=== PATIENT | female | born 1955 | race Caucasian/White ===

== ENCOUNTER 2016-09-25 12:13 | Inpatient (IN) | payer OTHER ==
[~2016-09-25] VITALS: Ht 165.1 cm; Wt 113.3 kg
[2016-09-25] MEDS ORDERED: SODIUM CHLORIDE 0.9% 1000ML 1,000 ML IV STA ×2 (12:37→16:04)
[2016-09-25] MEDS ORDERED: FLUT0.15 NAE (13:07)
[2016-09-25] MEDS ORDERED: LORA-749 PO (13:07)
--- NOTE | 2016-09-25 13:28 | DIAGNOSTIC IMAGING REPORT ---
CHEST ONE VIEW PORTABLE CLINICAL HISTORY: Dyspneic, tachycardia COMPARISON STUDY: No previous studies for comparison. FINDINGS: Moderate S-shaped scoliosis of the thoracolumbar spine is partially imaged. There is no pneumothorax or pleural effusion. There is no evidence of pulmonary edema. Cardiac size is normal. IMPRESSION: 1. No acute cardiopulmonary findings. 2. Moderate thoracolumbar spine S-shaped scoliosis. Electronically signed by: Scott Corbin M.D. 09/25/2016 1:26 PM Dictated Date/Time: 09/25/2016 1:25 PM
[2016-09-25 13:30] LABS: BASO % 0.1 %; BASO ABS # 0.02 K/uL (0-0.2); COMPLETE YES; EOS % 0.3 %; IG% 0.2 %; LYMPH ABS # 0.97 K/uL (1.2-3.4); MEAN CELL VOLUME 87.2 fL (80-100); MEAN CORPUSCULAR HEMOGLOBIN 28.7 pg (25-34); MEAN CORPUSCULAR HGB CONC 32.9 g/dl (32-36); MEAN PLATELET VOLUME 9.2 fL (7.4-10.4); NEUT % 88.4 %; PLATELET COUNT 298 K/uL (130-400); WHITE BLOOD COUNT 13.82 K/uL (4.8-10.8)
--- NOTE | 2016-09-25 13:34 | EMERGENCY ROOM VISIT NOTE ---
History First contact with patient: 12:23 Chief Complaint: ILLNESS Stated Complaint: HIGH PULSE, FEVER, TIRED History of Present Illness The patient is a 61 year old female who presents to the Emergency Room via private vehicle referred from physician office with complaints of "high pulse, fever, tired". The patient states that August 30, she began with generalized fatigue, so her family doctor who gave her nasal spray, and Claritin-D recommendations. She then went home and felt a little bit better but then developed a cough. She states she went back and was given a course of prednisone taper. She states that she began to feel a little bit better, but off-and-on has had flareups of the cough and fatigue. She states it has progressively worsened to the point where she now feels extremely tired, and is dyspneic with exertion. She states that last night around 2 PM she developed chills, shivering. She states that her "bones ache". She was seen by a practitioner in Dr. Vishnu Hanks's office today, who referred her here for further evaluation and management as she was found to be very tachycardic. There is associated fevers, chills, posttussive emesis 1, and fatigue. She denies any chest pain, nausea, abdominal pain, close contacts with similar symptoms, urinary symptoms. She does have a minimal appetite. There is no history of thyroid problems. Her bowel movements and urination has been normal. She is not compromised and did receive her flu shot this year. Review of Systems A complete 10-point Review of Systems was discussed with the patient, with pertinent positives and negatives listed in the History of Present Illness. All remaining Review of Systems questions can be considered negative unless otherwise specified. Past Medical/Surgical History Medical Problems: (1) SIRS (systemic inflammatory response syndrome) Cholecystectomy Family History Heart disease, hypertension, cancer, gallbladder disease Social History Smoking Status: Never Smoker Social History: Patient lives at home with . She denies alcohol and tobacco use. Current/Historical Medications Scheduled PRN Fluticasone Propionate (Nasal) (Flonase Allergy Relief), 2 SPRAY ALBINO DAILY PRN for Nasal Congestion Loratadine & Pseudoephedrine (Claritin-D 24 Hour), 1 TAB PO DAILY PRN for ALLERGY/CONGESTION Allergies Coded Allergies: No Known Allergies (Unverified , 09/25/16) Physical Exam Vital Signs Date Time Temp Pulse Resp B/P (MAP) Pulse Ox O2 Delivery O2 Flow Rate FiO2 09/25/16 18:32 154/91 09/25/16 18:30 103 96 09/25/16 18:02 106/76 09/25/16 18:00 101 98 09/25/16 17:50 106 18 130/71 94 09/25/16 17:49 37.1 09/25/16 15:16 130/86 09/25/16 14:43 117 25 95 09/25/16 14:33 116 22 96 09/25/16 14:32 127/73 09/25/16 14:28 112 27 94 09/25/16 14:23 112 20 95 09/25/16 14:18 111 25 95 09/25/16 14:13 110 24 94 09/25/16 14:08 106 28 95 09/25/16 14:07 138/85 09/25/16 13:48 109 27 94 09/25/16 13:43 111 23 95 09/25/16 13:38 113 19 95 09/25/16 13:33 113 31 95 09/25/16 13:32 135/89 09/25/16 13:28 112 26 94 09/25/16 13:23 112 24 93 09/25/16 13:18 117 27 147/88 94 09/25/16 13:13 122 22 09/25/16 13:08 124 22 95 09/25/16 13:03 127 28 94 09/25/16 12:58 125 28 93 09/25/16 12:55 95 Room Air 09/25/16 12:53 129 18 93 09/25/16 12:48 128 23 94 09/25/16 12:45 126 09/25/16 12:43 111 25 93 09/25/16 12:21 37.7 144 18 155/92 95 Room Air Physical Exam VITAL SIGNS - Vital signs and nursing notes were reviewed. Patient is febrile at 37.7, hypertensive at 152/92, tachycardic at a rate of 144 beats per minutes and saturating on room air 95%. GENERAL -61-year-old female appearing her stated age who is in no acute distress. Communicates well with provider and answers questions appropriately. SKIN - Without rashes. the integument is unremarkable. HEAD - NC/AT. EYES - PERRL with EOMI bilaterally. Sclera anicteric. Palpebral conjunctiva pink and moist with no injection noted. EARS - No deformities of external structures noted on gross examination bilaterally. No pain elicited with palpation of the tragus bilaterally. External auditory canals without discharge or otorrhea. Tympanic membranes pearly lopez without retraction or bulging. No fluid or purulent material visualized behind the TM. Handle of malleus, umbo, cone of light, pars tensa/ flaccid all easily visualized. NOSE - Midline and without cyanosis. No epistaxis or purulent drainage noted. Septum midline without deviation or septal hematoma noted. MOUTH/OROPHARYNX - Without perioral cyanosis. Buccal mucosa pink and moist and without leukoplakia. Tongue midline with equal elevation of palate bilaterally. No tonsillar hypertrophy, erythema, or exudates noted. Fair dentition noted. NECK - Neck with FROM. Supple to palpation. No lymphadenopathy noted. No nuchal rigidity. No meningismus. LUNGS - Chest wall symmetric without accessory muscle use, intercostals retractions, or central cyanosis. Normal vesicular breath sounds CTA B/L. No wheezes, rales, or rhonchi appreciated. CARDIAC - RRR with S1/S2. No murmur, rubs, or gallops appreciated. ABDOMEN - Abdominal contour without pulsations or visible masses. BS normoactive all four quadrants. No tenderness, palpable masses, hepatosplenomegaly, or ascites noted. EXTREMITIES - No clubbing or peripheral cyanosis. No pretibial edema present. No calf edema. +5/5 strength noted in UE/LE bilaterally. NEUROLOGIC - Cranial nerves II through XII grossly intact. Sensory intact to light touch throughout. PSYCH - Pt is very pleasant and interacts well with examiner. Medical Decision & Procedures ER Provider Diagnostic Interpretation: CHEST ONE VIEW PORTABLE CLINICAL HISTORY: Dyspneic, tachycardia COMPARISON STUDY: No previous studies for comparison. FINDINGS: Moderate S-shaped scoliosis of the thoracolumbar spine is partially imaged. There is no pneumothorax or pleural effusion. There is no evidence of pulmonary edema. Cardiac size is normal. IMPRESSION: 1. No acute cardiopulmonary findings. 2. Moderate thoracolumbar spine S-shaped scoliosis. Electronically signed by: Scott Corbin M.D. 09/25/2016 1:26 PM Dictated Date/Time: 09/25/2016 1:[address] ANGIOGRAM OF THE CHEST CLINICAL HISTORY: Tachycardia, elevated d-dimer, fever, fatigue. COMPARISON STUDY: Chest x-ray dated 10-10 TECHNIQUE: Following the IV administration of 102 mL of Optiray-320, CT angiogram of the thorax was performed from the thoracic inlet to the lung bases utilizing the pulmonary embolus protocol. Images are reviewed in the axial, sagittal, and coronal planes. IV contrast was administered without complication. MIP imaging was performed. CT DOSE: 488.89 mGy.cm FINDINGS: There is a 44 mm left lobe hepatic cyst. There is no pathologic mediastinal adenopathy. There is a borderline enlarged 9 mm left hilar lymph node. There was no evidence of thoracic aortic dilatation. There were no pulmonary artery filling defects to indicate acute pulmonary embolism. No pleural effusions are visualized. Is a 5 mm solid nodule in the superior segment of the right lower lobe (image #[id number]). There is also a 2.5 mm right lower lobe pulmonary nodule as visualized in image #[id number]. IMPRESSION: 1. No evidence of acute pulmonary embolism 2. Borderline enlarged 9 mm left hilar lymph node 3. 5 mm solid right lower lobe pulmonary nodule. In a low risk patient, no further follow-up is consider necessary. In a high-risk patient, a 12 month follow-up CT scan should be considered. Please refer to below summary of Fleischner criteria recommendations for follow-up of incidental CT nodules (Sree Adame, Guidelines for management of small pulmonary nodules detected on CT scans: A statement from the Fleischner Society, Radiology 237: [phone].) SOLID NODULES Solitary nodule size: <6 mm * low risk patients: no follow-up needed * high risk patients: optional CT at 12 months Solitary nodule size: 6-8 mm * low risk patients: follow-up at 6-12 months, then consider further follow-up at 18-24 months * high risk patients: initial follow-up CT at 6-12 months and then at 18-24 months if no change Solitary nodule size: >8 mm * either low or high risk patients - consider follow-up CT at 3 months, and/or CT-PET, and/or biopsy Multiple nodules size: <6 mm * low risk patients: no routine follow-up * high risk patients: optional CT at 12 months Multiple nodules size: 6-8 mm * low risk patients: follow-up at 3-6 months, then consider further follow-up at 18-24 months * high risk patients: follow-up at 3-6 months, then at 18-24 months if no change Multiple nodules size: >8 mm * low risk patients: follow-up at 3-6 months, then consider further follow-up at 18-24 months * high risk patients: follow-up at 3-6 months, then at 18-24 months if no change Note: newly detected indeterminate nodule in persons 35 years of age or older. * low risk patients: minimal or absent history of smoking and/or other known risk factors * high risk patients: history of smoking or of other known risk factors (e.g. first degree relative with lung cancer, or exposure to asbestos, radon, uranium) * if a nodule up to 8 mm is partly solid or is ground glass further follow-up is required after 24 months to exclude possible slow growing adenocarcinoma (RACHEL) SUBSOLID NODULES Solitary pure ground-glass nodule * nodule size <6 mm - no CT follow-up required * nodule size >=6 mm - follow-up CT at 6-12 months, then every 2 years until 5 years Solitary part-solid nodule * nodule size <6 mm - no CT follow-up required * nodule size >=6 mm - follow-up CT at 3-6 months. If unchanged, and solid component remains <6 mm, then annual follow-up for 5 years Multiple subsolid nodules * nodule size <6 mm - follow-up CT at 3-6 months, consider further follow-up at 2 and 4 years if stable * nodule size >=6 mm - follow-up CT at 3-6 months, subsequent management based on the most suspicious nodule(s) Electronically signed by: Harrison Edgar M.D. 09/25/2016 3:16 PM Dictated Date/Time: 09/25/2016 3:08 PM Laboratory Results Test 09/25/16 12:45 09/25/16 12:51 09/25/16 12:52 09/25/16 13:15 D-Dimer 1230 ug/L FEU (0-500) Magnesium Level 1.9 mg/dl (1.8-2.4) Total Bilirubin 0.5 mg/dl (0.2-1) Aspartate Amino Transf (AST/SGOT) 11 U/L (15-37) Alanine Aminotransferase (ALT/SGPT) 18 U/L (12-78) Alkaline Phosphatase 71 U/L (45-117) Total Creatine Kinase 51 U/L (26-192) Creatine Kinase MB 0.7 ng/ml (0.5-3.6) Creatine Kinase MB Ratio 1.4 (0-3.0) Total Protein 7.9 gm/dl (6.4-8.2) Albumin 3.5 gm/dl (3.4-5.0) Globulin 4.4 gm/dl (2.5-4.0) Albumin/Globulin Ratio 0.8 (0.9-2) Thyroid Stimulating Hormone (TSH) 0.487 uIu/ml (0.300-4.500) Bedside Troponin I 0.000 ng/ml (0-0.045) JS-Ahl-J-Type Natriuretic Peptide 77 pg/ml (0-900) Bedside Lactic Acid Venous 1.04 mmol/L (0.90-1.70) Influenza Type A Antigen Neg for Influ A (NEG) Influenza Type B Antigen Neg for Influ B (NEG) Test 09/25/16 14:05 Urine Color YELLOW Urine Appearance CLEAR (CLEAR) Urine pH 8.0 (4.5-7.5) Urine Specific [place] 1.014 (1.000-1.030) Urine Protein NEG (NEG) Urine Glucose (UA) NEG (NEG) Urine Ketones NEG (NEG) Urine Occult Blood NEG (NEG) Urine Nitrite NEG (NEG) Urine Bilirubin NEG (NEG) Urine Urobilinogen NEG (NEG) Urine Leukocyte Esterase NEG (NEG) Medications Administered Medications (Trade) Dose Ordered Sig/Deborah Route Start Time Stop Time Status Last Admin Dose Admin Sodium Chloride 1,000 ml @ 999 mls/hr Q1H1M STAT IV 09/25/16 12:37 09/25/16 13:37 DC 09/25/16 12:37 999 MLS/HR Sodium Chloride 1,000 ml @ 999 mls/hr Q1H1M STAT IV 09/25/16 16:04 09/25/16 17:04 DC 09/25/16 17:24 999 MLS/HR Potassium Chloride (Klor-Con M10) 40 meq STK-MED ONCE .ROUTE 09/25/16 18:58 09/25/16 18:59 DC 09/25/16 19:01 40 MEQ Medical Decision Patient was seen and evaluated as above. Patient is found to be tachycardic rate 144 bpm. Immediate differentials include volume depletion, pulmonary embolism, pneumonia, sepsis, among others. IV access was initiated and the above workup was performed. Bedside EKG reveals sinus tachycardia, rate of 131 bpm. No evidence of myocardial infarction at this time. Cultures were drawn, and [id number] BNP, lactic acid, and troponin were initiated. Chest x-ray is interpreted by myself reveals no effusion or opacity. D-dimer was elevated, emergent CT of the chest was obtained. No evidence of PE. Incidental findings noted as listed above. CBC reveals leukocytosis at 13.2, no anemia. Sodium, and potassium were both low at 135 and 3.4 respectively. Random glucose 129. Globulin 4.4, TSH murmur. Point care troponin 0. BNP 77. Negative for influenza. The patient was hydrated with normal saline. She was given 1 L here in the emergency department. No liter was ordered. She was able to decrease her heart rate into the low 100s. Prescription from going depletion, however given her presentation with 37.7, leukocytosis and tachycardia she is concerning for SIRS. There is unknown cause at this time. I do believe that further evaluation and management in the inpatient setting is appropriate. She was informed upon the nodules and CAT scan findings. She was educated upon today's findings. Please refer to further documentation regarding her stay, as I did speak with the hospitalist. In the evaluation treatment this patient following differential diagnoses were entertained: ND, PE, lung cancer, pneumonia, sepsis, among others. Impression Primary Impression: SIRS (systemic inflammatory response syndrome) Additional Impressions: Hypokalemia Lung nodule Departure Information Dispostion Admitted as an inpatient Condition FAIR Referrals Vishnu Hanks M.D. (PCP) Patient Instructions My [facility] Problem Qualifiers
[2016-09-25 13:41] LABS: BUN/CREATININE RATIO 15.2 (10-20); CALCIUM 9.3 mg/dl (8.5-10.1); CREATININE 0.65 mg/dl (0.60-1.20); MAGNESIUM 1.9 mg/dl (1.8-2.4); POTASSIUM 3.4 mmol/L (3.5-5.1)
[2016-09-25 13:51] LABS: ALB/GLOB RATIO 0.8 (0.9-2); CKMB/CK RATIO 1.4 (0-3.0); THYROID STIMULATING HORMONE 0.487 uIu/ml (0.300-4.500)
[2016-09-25 14:21] LABS: URINE APPEARANCE CLEAR (CLEAR); URINE BILIRUBIN NEG (NEG); URINE COLOR YELLOW; URINE NITRITE NEG (NEG); URINE SPECIFIC GRAVITY 1.014 (1.000-1.030); UROBILINOGEN NEG (NEG); ZZUR CULT IF INDIC CLEAN CATCH NO
[2016-09-25 14:26] LABS: MANUAL MICROSCOPIC REQUIRED? NO; REVIEW REQ? NO
[2016-09-25] MEDS ORDERED: OPTIRAY 320 IV PRN (14:45)
--- NOTE | 2016-09-25 15:17 | DIAGNOSTIC IMAGING REPORT ---
CT ANGIOGRAM OF THE CHEST CLINICAL HISTORY: Tachycardia, elevated d-dimer, fever, fatigue. COMPARISON STUDY: Chest x-ray dated 10-10 TECHNIQUE: Following the IV administration of 102 mL of Optiray-320, CT angiogram of the thorax was performed from the thoracic inlet to the lung bases utilizing the pulmonary embolus protocol. Images are reviewed in the axial, sagittal, and coronal planes. IV contrast was administered without complication. MIP imaging was performed. CT DOSE: 488.89 mGy.cm FINDINGS: There is a 44 mm left lobe hepatic cyst. There is no pathologic mediastinal adenopathy. There is a borderline enlarged 9 mm left hilar lymph node. There was no evidence of thoracic aortic dilatation. There were no pulmonary artery filling defects to indicate acute pulmonary embolism. No pleural effusions are visualized. Is a 5 mm solid nodule in the superior segment of the right lower lobe (image #[id number]). There is also a 2.5 mm right lower lobe pulmonary nodule as visualized in image #[id number]. IMPRESSION: 1. No evidence of acute pulmonary embolism 2. Borderline enlarged 9 mm left hilar lymph node 3. 5 mm solid right lower lobe pulmonary nodule. In a low risk patient, no further follow-up is consider necessary. In a high-risk patient, a 12 month follow-up CT scan should be considered. Please refer to below summary of Fleischner criteria recommendations for follow-up of incidental CT nodules (Sree Adame, Guidelines for management of small pulmonary nodules detected on CT scans: A statement from the Fleischner Society, Radiology 237: [phone].) SOLID NODULES Solitary nodule size: <6 mm * low risk patients: no follow-up needed * high risk patients: optional CT at 12 months Solitary nodule size: 6-8 mm * low risk patients: follow-up at 6-12 months, then consider further follow-up at 18-24 months * high risk patients: initial follow-up CT at 6-12 months and then at 18-24 months if no change Solitary nodule size: >8 mm * either low or high risk patients - consider follow-up CT at 3 months, and/or CT-PET, and/or biopsy Multiple nodules size: <6 mm * low risk patients: no routine follow-up * high risk patients: optional CT at 12 months Multiple nodules size: 6-8 mm * low risk patients: follow-up at 3-6 months, then consider further follow-up at 18-24 months * high risk patients: follow-up at 3-6 months, then at 18-24 months if no change Multiple nodules size: >8 mm * low risk patients: follow-up at 3-6 months, then consider further follow-up at 18-24 months * high risk patients: follow-up at 3-6 months, then at 18-24 months if no change Note: newly detected indeterminate nodule in persons 35 years of age or older. * low risk patients: minimal or absent history of smoking and/or other known risk factors * high risk patients: history of smoking or of other known risk factors (e.g. first degree relative with lung cancer, or exposure to asbestos, radon, uranium) * if a nodule up to 8 mm is partly solid or is ground glass further follow-up is required after 24 months to exclude possible slow growing adenocarcinoma (RACHEL) SUBSOLID NODULES Solitary pure ground-glass nodule * nodule size <6 mm - no CT follow-up required * nodule size >=6 mm - follow-up CT at 6-12 months, then every 2 years until 5 years Solitary part-solid nodule * nodule size <6 mm - no CT follow-up required * nodule size >=6 mm - follow-up CT at 3-6 months. If unchanged, and solid component remains <6 mm, then annual follow-up for 5 years Multiple subsolid nodules * nodule size <6 mm - follow-up CT at 3-6 months, consider further follow-up at 2 and 4 years if stable * nodule size >=6 mm - follow-up CT at 3-6 months, subsequent management based on the most suspicious nodule(s) Electronically signed by: Harrison Edgar M.D. 09/25/2016 3:16 PM Dictated Date/Time: 09/25/2016 3:08 PM
[2016-09-25] MEDS ORDERED: POTASSIUM CHLORIDE 10 MEQ TABCR PO STA (18:46)
--- NOTE | 2016-09-25 18:46 | History and Physical ---
History & Physical Date & Time of Service: Sep 25, 2016 at 18:32 Chief Complaint: High Pulse, Fever, Tired Primary Care Physician: Vishnu Hanks M.D. History of Present Illness Source: patient, family This patient is a pleasant 61-year-old female that presents to the emergency department from her primary care physician's office today with complaints of a nonproductive cough, mild dyspnea on exertion and fever. The patient was sent here due to significant tachycardia. The patient said her cough started about 3 weeks ago. At that time, she says it was productive. She was seen at urgent care and told that it was probably allergies. She was told to take Claritin-D. There have been no significant improvement. Approximately 2 weeks ago, the patient was seen again by urgent care. She was started on prednisone, which helped her symptoms. The symptoms return after she finished her steroid taper. She does report feeling feverish earlier today. Other associated symptoms are mild headache. She denies any recent travel. She does go camping. No changes in medications other than what is noted above. She does not smoke. No known allergies. Past Medical/Surgical History no other chronic problems reported Family History Mother- goiter Father-COPD Social History Smoking Status: Never Smoker Smokeless Tobacco Use: No Alcohol Use: socially Marital Status: Housing status: lives with family Occupational Status: employed Allergies Coded Allergies: No Known Allergies (Unverified , 09/25/16) Home Medications Scheduled PRN Fluticasone Propionate (Nasal) (Flonase Allergy Relief), 2 SPRAY ALBINO DAILY PRN for Nasal Congestion Loratadine & Pseudoephedrine (Claritin-D 24 Hour), 1 TAB PO DAILY PRN for ALLERGY/CONGESTION Review of Systems 10 system review performed and negative unless noted in HPI or below Physical Exam Vital Signs Date Time Temp Pulse Resp B/P (MAP) Pulse Ox O2 Delivery O2 Flow Rate FiO2 09/25/16 17:50 106 18 130/71 94 09/25/16 17:49 37.1 09/25/16 15:16 130/86 09/25/16 14:43 117 25 95 09/25/16 14:33 116 22 96 09/25/16 14:32 127/73 09/25/16 14:28 112 27 94 09/25/16 14:23 112 20 95 09/25/16 14:18 111 25 95 09/25/16 14:13 110 24 94 09/25/16 14:08 106 28 95 09/25/16 14:07 138/85 09/25/16 13:48 109 27 94 09/25/16 13:43 111 23 95 09/25/16 13:38 113 19 95 09/25/16 13:33 113 31 95 09/25/16 13:32 135/89 09/25/16 13:28 112 26 94 09/25/16 13:23 112 24 93 09/25/16 13:18 117 27 147/88 94 09/25/16 13:13 122 22 09/25/16 13:08 124 22 95 09/25/16 13:03 127 28 94 09/25/16 12:58 125 28 93 09/25/16 12:55 95 Room Air 09/25/16 12:53 129 18 93 09/25/16 12:48 128 23 94 09/25/16 12:45 126 09/25/16 12:43 111 25 93 09/25/16 12:21 37.7 144 18 155/92 95 Room Air General Appearance: no apparent distress Head: normocephalic Eyes: EOMI ENT: + pertinent finding (tonsils normal in appearance. No erythema or edema noted. No eczema. Oral mucosa slightly dry.) Neck: no adenopathy, no JVD Respiratory/Chest: lungs clear Cardiovascular: + tachycardia (mildly tachycardic. Regular. No murmur.) Abdomen/GI: normal bowel sounds, non tender, soft Extremities/Musculoskelatal: no calf tenderness, no pedal edema Neurologic/Psych: no motor/sensory deficits, oriented x 3 Skin: warm/dry Diagnostics Laboratory Results Results Past 24 Hours Test 09/25/16 12:45 09/25/16 12:51 09/25/16 12:52 09/25/16 13:15 Range/Units White Blood Count 13.82 4.8-10.8 K/uL Red Blood Count 4.70 4.2-5.4 M/uL Hemoglobin 13.5 12.0-16.0 g/dL Hematocrit 41.0 37-47 % Mean Corpuscular Volume 87.2 80-100 fL Mean Corpuscular Hemoglobin 28.7 25-34 pg Mean Corpuscular Hemoglobin Concent 32.9 32-36 g/dl Platelet Count 298 130-400 K/uL Mean Platelet Volume 9.2 7.4-10.4 fL Neutrophils (%) (Auto) 88.4 % Lymphocytes (%) (Auto) 7.0 % Monocytes (%) (Auto) 4.0 % Eosinophils (%) (Auto) 0.3 % Basophils (%) (Auto) 0.1 % Neutrophils # (Auto) 12.21 1.4-6.5 K/uL Lymphocytes # (Auto) 0.97 1.2-3.4 K/uL Monocytes # (Auto) 0.55 0.11-0.59 K/uL Eosinophils # (Auto) 0.04 0-0.5 K/uL Basophils # (Auto) 0.02 0-0.2 K/uL RDW Standard Deviation 44.6 36.4-46.3 fL RDW Coefficient of Variation 14.0 11.5-14.5 % Immature Granulocyte % (Auto) 0.2 % Immature Granulocyte # (Auto) 0.03 0.00-0.02 K/uL D-Dimer 1230 0-500 ug/L FEU Sodium Level 135 136-145 mmol/L Potassium Level 3.4 3.5-5.1 mmol/L Chloride Level 101 98-107 mmol/L Carbon Dioxide Level 23 21-32 mmol/L Anion Gap 11.0 3-11 mmol/L Blood Urea Nitrogen 10 7-18 mg/dl Creatinine 0.65 0.60-1.20 mg/dl Est Creatinine Clear Calc Drug Dose 117.3 ml/min Estimated GFR () 112.6 Estimated GFR (Non- 97.2 BUN/Creatinine Ratio 15.2 10-20 Random Glucose 129 70-99 mg/dl Calcium Level 9.3 8.5-10.1 mg/dl Magnesium Level 1.9 1.8-2.4 mg/dl Total Bilirubin 0.5 0.2-1 mg/dl Aspartate Amino Transf (AST/SGOT) 11 15-37 U/L Alanine Aminotransferase (ALT/SGPT) 18 12-78 U/L Alkaline Phosphatase 71 45-117 U/L Total Creatine Kinase 51 26-192 U/L Creatine Kinase MB 0.7 0.5-3.6 ng/ml Creatine Kinase MB Ratio 1.4 0-3.0 Total Protein 7.9 6.4-8.2 gm/dl Albumin 3.5 3.4-5.0 gm/dl Globulin 4.4 2.5-4.0 gm/dl Albumin/Globulin Ratio 0.8 0.9-2 Thyroid Stimulating Hormone (TSH) 0.487 0.300-4.500 uIu/ml Bedside Troponin I 0.000 0-0.045 ng/ml SW-Ary-U-Type Natriuretic Peptide 77 0-900 pg/ml Bedside Lactic Acid Venous 1.04 0.90-1.70 mmol/L Influenza Type A Antigen Neg for Influ A NEG Influenza Type B Antigen Neg for Influ B NEG Test 09/25/16 14:05 Range/Units Urine Color YELLOW Urine Appearance CLEAR CLEAR Urine pH 8.0 4.5-7.5 Urine Specific [place] 1.014 1.000-1.030 Urine Protein NEG NEG Urine Glucose (UA) NEG NEG Urine Ketones NEG NEG Urine Occult Blood NEG NEG Urine Nitrite NEG NEG Urine Bilirubin NEG NEG Urine Urobilinogen NEG NEG Urine Leukocyte Esterase NEG NEG Microbiology Results 09/25/16 Blood Culture, Received Pending 09/25/16 Blood Culture, Received Pending Diagnostic Radiology Patient: DREW DAMON Address1: [address] [place] [address] Rec: [id number] Address2: [facility] ID: [id number] [facility] Zip: [place] [address] Date: 1955 Sex: F Room/Bed: Ref Phy: Vishnu Hanks M.D. SC: TERRIE Att Phy: Report #: [id number] [facility] Phy: Vishnu Hanks M.D. Test: CXPEA Admit Phy: Library Serials Assistant: DAMASO Interpreting Phy: Harrison Edgar M.D. Diagnosis: HIGH PULSE, FEVER, TIRED Ordering Phy: Rick Kumar PA-C Service Date: 09/25/16 Admit Date: 09/25/16 MNE: [id number] CONF: DICTATED BY: Harrison Edgar M.D.]] CC: Rick Kumar PA-C Guillard, Frank, M.D. Pheasant, Karen S., DO Endcc: [~ rep ct add3]] CT ANGIOGRAM OF THE CHEST CLINICAL HISTORY: Tachycardia, elevated d-dimer, fever, fatigue. COMPARISON STUDY: Chest x-ray dated 10-10 TECHNIQUE: Following the IV administration of 102 mL of Optiray-320, CT angiogram of the thorax was performed from the thoracic inlet to the lung bases utilizing the pulmonary embolus protocol. Images are reviewed in the axial, sagittal, and coronal planes. IV contrast was administered without complication. MIP imaging was performed. CT DOSE: 488.89 mGy.cm FINDINGS: There is a 44 mm left lobe hepatic cyst. There is no pathologic mediastinal adenopathy. There is a borderline enlarged 9 mm left hilar lymph node. There was no evidence of thoracic aortic dilatation. There were no pulmonary artery filling defects to indicate acute pulmonary embolism. No pleural effusions are visualized. Is a 5 mm solid nodule in the superior segment of the right lower lobe (image #[id number]). There is also a 2.5 mm right lower lobe pulmonary nodule as visualized in image #[id number]. IMPRESSION: 1. No evidence of acute pulmonary embolism 2. Borderline enlarged 9 mm left hilar lymph node 3. 5 mm solid right lower lobe pulmonary nodule. In a low risk patient, no further follow-up is consider necessary. In a high-risk patient, a 12 month follow-up CT scan should be considered. Please refer to below summary of Fleischner criteria recommendations for follow-up of incidental CT nodules (Sree Adame, Guidelines for management of small pulmonary nodules detected on CT scans: A statement from the Fleischner Society, Radiology 237: [phone].) SOLID NODULES Solitary nodule size: <6 mm * low risk patients: no follow-up needed * high risk patients: optional CT at 12 months Solitary nodule size: 6-8 mm * low risk patients: follow-up at 6-12 months, then consider further follow-up at 18-24 months * high risk patients: initial follow-up CT at 6-12 months and then at 18-24 months if no change Solitary nodule size: >8 mm * either low or high risk patients - consider follow-up CT at 3 months, and/or CT-PET, and/or biopsy Multiple nodules size: <6 mm * low risk patients: no routine follow-up * high risk patients: optional CT at 12 months Multiple nodules size: 6-8 mm * low risk patients: follow-up at 3-6 months, then consider further follow-up at 18-24 months * high risk patients: follow-up at 3-6 months, then at 18-24 months if no change Multiple nodules size: >8 mm * low risk patients: follow-up at 3-6 months, then consider further follow-up at 18-24 months * high risk patients: follow-up at 3-6 months, then at 18-24 months if no change Note: newly detected indeterminate nodule in persons 35 years of age or older. * low risk patients: minimal or absent history of smoking and/or other known risk factors * high risk patients: history of smoking or of other known risk factors (e.g. first degree relative with lung cancer, or exposure to asbestos, radon, uranium) * if a nodule up to 8 mm is partly solid or is ground glass further follow-up is required after 24 months to exclude possible slow growing adenocarcinoma (RACHEL) SUBSOLID NODULES Solitary pure ground-glass nodule * nodule size <6 mm - no CT follow-up required * nodule size >=6 mm - follow-up CT at 6-12 months, then every 2 years until 5 years Solitary part-solid nodule * nodule size <6 mm - no CT follow-up required * nodule size >=6 mm - follow-up CT at 3-6 months. If unchanged, and solid component remains <6 mm, then annual follow-up for 5 years Multiple subsolid nodules * nodule size <6 mm - follow-up CT at 3-6 months, consider further follow-up at 2 and 4 years if stable * nodule size >=6 mm - follow-up CT at 3-6 months, subsequent management based on the most suspicious nodule(s) Electronically signed by: Harrison Edgar M.D. 09/25/2016 3:16 PM Dictated Date/Time: 09/25/2016 3:08 PM The status of this report is Signed. Draft = Not yet reviewed or approved by Radiologist. Signed = Reviewed and approved by Radiologist. EKG Sinus tachycardia with a rate of 131 bpm Q waves present in the inferior leads No acute ischemic changes noted No prior for comparison Impression Assessment and Plan 61-year-old female presents to the ED with a chronic cough, mild fever, dyspnea on exertion and tachycardia. Workup in the ED significant for mild leukocytosis. A pulmonary nodule 5 mm was incidently found on CT, which is negative for PE Cough, SIRS--? viral etiology such as bronchitis vs allergies or possibly even reflux -Observe in telemetry given tachycardia -Check EKG in the morning -Begin Augmentin 875 mg po BID -Solu-Medrol 40 mg IV q 8 hr -Begin pantoprazole 40 mg po daily -check free T4 given family hx DVT prophylaxis -If the patient isn't discharged tomorrow, consider chemical means of prophylaxis -TEDS, SCDs CODE STATUS -LEVEL I FULL CODE I agree with PA assessment and plan and have seen and examined pt Tachycardia noted ?cough due to allergies vs GERD vs bronchitis CTA and CXR unremarkable Responded well to steroids in the past Obs at this time Will start on augmentin and solumedrol Monitor for response Level of Care Telemetry VTE Prophylaxis VTE Risk Assessment Done? Y/N: Yes Risk Level: Low Given or contraindicated: T.E.D. Stockings, SCD's
[2016-09-25] MEDS ORDERED: POTASSIUM CHLORIDE 10 MEQ TABCR ONE (18:58)
[2016-09-25] MEDS ORDERED: LEVALBUTEROL/IPRATROPIUM NEB INH PRN (19:00)
[2016-09-25] MEDS ORDERED: MAGNESIUM HYDROXIDE SUSP 30 ML UDC PO PRN (19:00)
[2016-09-25] MEDS ORDERED: ONDANSETRON INJ 2 MG/ML 2 ML VIAL IV PRN (19:00)
[2016-09-25] MEDS ORDERED: ACETAMINOPHEN 325 MG TAB PO PRN (19:00)
[2016-09-25] MEDS ORDERED: IPRATROPIUM BROMIDE NEB SOLN 0.02% 2.5 ML VIAL INH PRN (20:15)
[2016-09-25] MEDS ORDERED: LEVALBUTEROL 1.25MG/0.5ML NEB INH PRN (20:15)
[2016-09-25] MEDS: SODIUM CHLOR 0.45% + 20MEQ KCL 1,000 ML IV SCH (21:47)
[2016-09-25] MEDS: METHYLPREDNISOLONE IV 40 MG in SYRINGE 0 ML IV SCH (21:47)
[2016-09-25] MEDS: PANTOprazole SOD 40 MG TAB PO SCH (21:47)
[2016-09-25] MEDS: AMOXICILLIN/CLAVULANATE TAB 875 MG TAB PO SCH (21:48)
[2016-09-25 22:49] VITALS: BP 145/89; PULSE 98; TEMP 36.9; O2SAT 93; Ht 165.1 cm; Wt 113.3 kg
[2016-09-26] VITALS (8 sets, daily range): BP systolic 114–149; BP diastolic 66–82; PULSE 69–89; TEMP 36.6–37; O2SAT 91–96
[2016-09-26] MEDS ORDERED: IV FLUIDS COMPLETED PRN (00:45)
[2016-09-26] MEDS: SODIUM CHLOR 0.45% + 20MEQ KCL 1,000 ML IV SCH ×3 (05:17→20:51)
[2016-09-26] MEDS: METHYLPREDNISOLONE IV 40 MG in SYRINGE 0 ML IV SCH ×3 (05:17→20:51)
[2016-09-26 05:58] LABS: COMPLETE YES; HEMATOCRIT 38.8 % (37-47); IG% 0.2 %; LYMPH % 10.4 %; LYMPH ABS # 0.63 K/uL (1.2-3.4); MEAN CELL VOLUME 88.6 fL (80-100); MEAN CORPUSCULAR HEMOGLOBIN 29.5 pg (25-34); MEAN CORPUSCULAR HGB CONC 33.2 g/dl (32-36); MEAN PLATELET VOLUME 9.3 fL (7.4-10.4); MONO % 1.3 %; NEUT % 88.1 %; PLATELET COUNT 225 K/uL (130-400); RED BLOOD COUNT 4.38 M/uL (4.2-5.4); WHITE BLOOD COUNT 6.05 K/uL (4.8-10.8)
[2016-09-26 06:37] LABS: BUN/CREATININE RATIO 12.7 (10-20); CALCIUM 8.5 mg/dl (8.5-10.1); CREATININE 0.62 mg/dl (0.60-1.20)
[2016-09-26] MEDS: AMOXICILLIN/CLAVULANATE TAB 875 MG TAB PO SCH ×2 (07:52→17:22)
[2016-09-26] MEDS: PANTOprazole SOD 40 MG TAB PO SCH (07:52)
--- NOTE | 2016-09-26 15:02 | PROGRESS NOTE ---
DATE: 09/26/2016 DATE: 09/26/2016. HISTORY OF PRESENT ILLNESS: Mrs. Mcdonald is a 61-year-old obese white female without chronic medical illnesses, who presented acutely on 09/25/2016 complaining of a persistent nonproductive cough, dyspnea on exertion, fever, and tachycardia. Her symptoms were present for approximately 3 weeks, and she was seen at an urgent care facility on 2 different occasions. The patient appears to have remained afebrile over the past 24 hours, but she did have some chills earlier today. Her cough and shortness of breath have certainly improved since she was admitted and started treatment. Her heart rate has slowed down as well. The patient is feeling significantly better than she did on her way into the hospital. She denies any headache, stiff neck, nausea, vomiting, or diarrhea. She denies any arthralgias or myalgias. Denies any urinary tract symptoms. Denies any sinus pressure or congestion. MEDICATIONS: 1. Solu-Medrol 40 mg IV q. 8 hours. 2. Half normal saline with potassium chloride at 125 mL per hour. 3. Augmentin 875 mg b.i.d. 4. Protonix 40 mg by mouth daily. 5. Atrovent nebulizers q. 4 hours p.r.n. 6. Xopenex nebulizers q. 4 hours p.r.n. for shortness of breath. 7. Tylenol p.r.n. 8. Milk of magnesia p.r.n. 9. Zofran 4 mg q. 6 hours IV as needed for nausea. ALLERGIES: NKDA. SOCIAL HISTORY: The patient does request a Lyme titer as she spends a lot of time camping and in the outdoors. She denies any erythema, chronic migraines, joint pain, or any joint swellings. PHYSICAL EXAMINATION: VITAL SIGNS: Temperature is 36.7 degree Celsius, pulse 69 and regular, respiratory rate is 16 and unlabored, blood pressure is 114/69. SPO2 is 94% on room air. GENERAL: The patient is in no acute distress. HEAD, EYES, EARS, NOSE, AND THROAT: Head is atraumatic, normocephalic. EOMs intact. Sclerae are anicteric. Faces symmetric. No perioral cyanosis. Mucous membranes moist. NECK: Without thyromegaly, adenopathy or JVD. Carotid upstrokes +2 bilaterally without bruits. CHEST AND LUNGS: Clear to auscultation throughout all lung larsen, no wheezes, rales, or rhonchi. CARDIOVASCULAR SYSTEM: S1 and S2 are regular at a rate of 68 beats per minute. No murmur, gallop or rub. PMI is nondisplaced. No lifts, heaves, or thrills. No abdominal, aortic or renal bruits. ABDOMINAL EXAMINATION: Bowel sounds present. No masses, organomegaly or tenderness. EXTREMITIES: Without clubbing, cyanosis or edema. NEUROLOGIC EXAMINATION: The patient is awake, alert and oriented. Pleasant and cooperative. Speech is clear. Normal movement in all 4 extremities. Gait pattern not assessed. LABORATORY DATA: Sodium 141 mmol/L, potassium 4.0 mmol/L. BUN is 8 mg/dL. Creatinine 0.62 mg/dL. Random glucose 196 mg/dL. Serum magnesium level was normal at 1.9 mg/dL. Point of care troponin I is 0.000 ng/mL. ProBNP is 77 pg/mL. Total CK is 51 units per liter with respective CK-MBs of 0.7 ng/dL. TSH normal at 0.487. Urinalysis unremarkable. D-dimer elevated at 1230, but CT angiogram of the chest and lungs shows no evidence of pulmonary embolism. White blood cell count is 6.05. Hemoglobin is 12.9 g/dL, hematocrit 30.8%. Platelet count 225,000. Influenza A and influenza B are negative. Lyme titer is pending. Telemetry monitoring shows predominantly normal sinus rhythm with rates in the 60s-90s since last night at midnight. ASSESSMENT: 1. Acute febrile illness with a nonproductive cough, shortness of breath, tachycardia, and leukocytosis with a leftward shift. Symptoms are improving. 2. Uncertain etiology, probably viral. 3. The patient requests Lyme titer due to her exposure to ticks in the past. PLAN: 1. The patient continues to do well, she has had significant symptomatic improvement since admission. 2. Reduce IV Solu-Medrol to 40 mg IV q 12 hours. 3. Continue Augmentin 875 b.i.d. 4. Continue nebulizers as directed. 5. Continue IV fluids for the time being. 6. Check Lyme titer. 7. We will continue to follow. 8. Blood cultures if she spikes any further temperatures. MTDD
[2016-09-26 21:31] LABS: LYME DISEASE AB IGG NEG (NEG)
[2016-09-26 21:44] LABS: LYME DISEASE AB IGM NEG (NEG)
[2016-09-27] MEDS: SODIUM CHLOR 0.45% + 20MEQ KCL 1,000 ML IV SCH (04:55)
[2016-09-27 05:27] VITALS: BP 119/67; PULSE 86; TEMP 36.6; O2SAT 94
[2016-09-27 07:51] VITALS: BP 109/67; PULSE 69; TEMP 36.5; O2SAT 95
[2016-09-27] MEDS: PANTOprazole SOD 40 MG TAB PO SCH (08:03)
[2016-09-27] MEDS: AMOXICILLIN/CLAVULANATE TAB 875 MG TAB PO SCH (08:04)
[2016-09-27] MEDS: METHYLPREDNISOLONE IV 40 MG in SYRINGE 0 ML IV SCH (09:50)
[2016-09-27] MEDS ORDERED: PRED20TA PO (11:44)
[2016-09-27] MEDS ORDERED: AMOX1TAB43 PO (11:44)
[2016-09-27] MEDS ORDERED: PRT40 PO (11:44)
--- NOTE | 2016-09-27 11:52 | Discharge Instructions ---
Discharge Instructions Date of Service Sep 27, 2016. Admission Reason for Admission: Chronic cough, fever, SIRS Discharge Discharge Diagnosis / Problem: Chronic cough, possible sinusitis, possible GERD , allergic rhinitis Discharge Goals Goal(s): Improve function, Diagnostic testing (recommend referral to pulmonology, PFT?) Activity Recommendations Activity Limitations: resume your previous activity Lifting Limitations: none Exercise/Sports Limitations: as tolerated May Resume Sexual Activity: when tolerated Shower/Bathe: no limitations Driving or Machine Use: no limitations . Instructions / Follow-Up Instructions / Follow-Up Medications: - AUGMENTIN: 875mg BID for 8 more days for a 10 day course, treating potential sinusitis as a cause of the chronic cough - PREDNISONE: 40mg (2 tablets) for 5 more days then stop, no need for taper - PROTONIX: 40mg daily, this reduces acid in the stomach, intended to treat any potential silent reflux that is exhibited by the cough continue to use allergy medications, Flonase you can use cough suppressant in form of Delsum or Robitussin FOLLOW UP - Dr. Hanks's office, call tomorrow for hospital follow up to be seen Wednesday please discuss with them a referral to pulmonology for this chronic cough, I will place a referral so you may receive a phone call this week could consider PFT once you feel better to rule out bronchospasm as a cause of the cough Current Hospital Diet Patient's current hospital diet: AHA Diet (Heart Healthy) Discharge Diet Recommended Diet: AHA Diet (Heart Healthy) Pending Studies Studies pending at discharge: no Medical Emergencies . Who to Call and When: Medical Emergencies: If at any time you feel your situation is an emergency, please call 911 immediately. . Non-Emergent Contact Non-Emergency issues call your: Primary Care Provider Call Non-Emergent contact if: you have a fever, you have any medication questions . . "Provider Documentation" section prepared by Óscar Seals. . VTE Core Measure Inpt VTE Proph given/why not?: [facility] [place] Drug Monitoring Program Search Results: no issues identified
[2016-09-27 11:58] VITALS: BP 107/66; PULSE 73; TEMP 36.7; O2SAT 93
--- NOTE | 2016-09-27 13:08 | Discharge Summary ---
Discharge Summary Date of Service Sep 27, 2016. Discharge Summary Admission Date: Sep 25, 2016 at 19:43 Discharge Date: Sep 27, 2016 Discharge Disposition: Home Principal Diagnosis: SIRS from respiratory source Problems/Secondary Diagnoses: Chronic cough Procedures: CTA chest - no PE, no pneumonia Consultations: none Medication Reconciliation New Medications: Prednisone (Prednisone) 20 Mg Tab 2 TAB PO DAILY for 5 Days, #10 TAB Amoxicillin & Pot Clavulanate (Amoxicillin/Clavulanate P) 1 Tab Tab 875 MG PO BIDM for 8 Days, #16 TAB 0 Refills Pantoprazole (Pantoprazole Sodium) 40 Mg Tab 40 MG PO QAM, #30 TAB 1 Refill Continued Medications: Fluticasone Propionate (Nasal) (Flonase Allergy Relief) 50 Mcg/Act Spr 2 SPRAY ALBINO DAILY PRN for Nasal Congestion Loratadine & Pseudoephedrine (Claritin-D 24 Hour) 1 Tab Tab 1 TAB PO DAILY PRN for ALLERGY/CONGESTION, TAB Discharge Exam Patient feeling much better since admission, no fever, no tachycardia, cough is much better. This has been an issue for almost a month now. She tried Claritin , Sudafed, and Flonase. More recently she developed fevers and tachycardia and was brought in for observation. Her symptoms quickly resolved with Augmentin, Prednisone. Discussed possible causes of chronic cough including GERD, post nasal drip, asthma, sinusitis. These can be looked into as outpatient. She feels ready for discharge. Review of Systems: Constitutional: No fever, No chills, No sweats, No weight loss, No weakness , No fatigue, No problem reported Eyes: No worsening of vision, No eye pain, No redness, No discharge, No diplopia, No problem reported ENT: No hearing loss, No unusual epistaxis, No nasal symptoms, No sore throat, No tinnitus, No dental problems, No trouble swallowing, No problem reported Respiratory: + cough (less frequent), No sputum, No wheezing, No shortness of breath, No dyspnea on exertion, No dyspnea at rest, No hemoptysis, No problem reported Cardiovascular: No chest pain, No orthopnea, No PND, No edema, No claudication, No palpitations, No problem reported Abdomen: No pain, No nausea, No vomiting, No diarrhea, No constipation, No GI bleeding, No problem reported Musculoskeletal: No joint pain, No muscle pain, No swelling, No calf pain, No problem reported Genitourinary - Female: No dysuria, No urinary frequency, No urinary urgency , No urinary incontinence Neurologic: No memory loss, No paralysis, No weakness, No numbness/tingling , No vertigo, No balance problems, No problem reported Psychiatric: No depression symptoms, No anhedonism, No anxiety, No insomnia , No substance abuse, No problem reported Endocrine: No fatigue, No excessive thirst, No excessive urination, No problem reported Hematologic / Lymphatic: No abnormal bleeding/bruising, No clotting problems , No swollen lymph nodes, No night sweats, No problem reported Integumentary: No rash, No itch, No new/changing skin lesions, No color change, No bleeding, No problem reported Physical Exam: General Appearance: no apparent distress, + obese Eyes: normal inspection, EOMI, sclerae normal ENT: normal ENT inspection, hearing grossly normal, pharynx normal Neck: supple, no adenopathy, no JVD, trachea midline Respiratory/Chest: chest non-tender, lungs clear, normal breath sounds, no respiratory distress, no accessory muscle use Cardiovascular: regular rate, rhythm, no edema, no gallop, no JVD, no murmur , normal peripheral pulses Abdomen / GI: normal bowel sounds, non tender, soft, no organomegaly Extremities: normal inspection, no calf tenderness, normal capillary refill , no pedal edema, normal range of motion, pelvis stable Neurologic/Psychiatric: web merchandiser II-XII nml as tested, no motor/sensory deficits , alert, normal mood/affect, normal reflexes, oriented x 3 Skin: normal color, warm/dry, no rash Lymphatic: no adenopathy Hospital Course 61-year-old female presents to the ED with a chronic cough, mild fever, dyspnea on exertion and tachycardia. Workup in the ED significant for mild leukocytosis. A pulmonary nodule 5 mm was incidently found on CT, which is negative for PE and negative for pneumonia. Started on Augmentin, Solu Medrol, nebulizers on admission. Symptoms resolved in 24 hours. Feeling well on 09/27, requesting to go home. Cough is much less frequent, no fevers since admission. SIRS with suspected URI source: no signs of pneumonia on CT chest, could be sinusitis with chronic cough? no fevers, vitals normal since starting antibiotics blood cultures negative will d/c on Augmentin for 8 more days for 10 days total short course of Prednisone for 5 days, no taper planned Chronic cough: symptoms for approximately one month, no history of cough no h/o GERD, asthma differential would include post nasal drip (already tried Claritin, Flonase and Prednisone outpatient, no resolution of symptoms) also possible GERD, will d/c on Protonix treat possible sinusitis with Augmentin close follow up with PCP and referral to pulmonary placed to see in 1-2 weeks could still be asthma (lungs without wheezing on exam), perhaps needs PFT with challenge? CODE STATUS -LEVEL I FULL CODE Total Time Spent: Greater than 30 minutes This includes examination of the patient, discharge planning, medication reconciliation, and communication with other providers. Discharge Instructions Please refer to the electronic Patient Visit Report (Discharge Instructions) for additional information. Follow-Up Dr. Hanks's office one week Pulmonology 1-2 weeks Additional Copies To Vishnu Hanks M.D.
== END 2016-09-27 12:59 | disposition home or self-care (01) | DRG 866 ==
LOC: C.EDB 12:16 → C.MED 19:43 → ENRESERV 19:51
PROVIDERS: ADMIT Hospitalist; ATTEND Internal Medicine
DX: B34.9 Viral infection, unspecified (principal); Z68.41 Body mass index [BMI] 40.0-44.9, adult; E87.6 Hypokalemia; R00.0 Tachycardia, unspecified; R05 Cough; R06.00 Dyspnea, unspecified; J32.9 Chronic sinusitis, unspecified; J30.9 Allergic rhinitis, unspecified; K21.9 Gastro-esophageal reflux disease without esophagitis; R91.1 Solitary pulmonary nodule; E66.9 Obesity, unspecified; Z77.128 Contact with and (suspected) exposure to other hazards in the physical environment; Z79.899 Other long term (current) drug therapy

== ENCOUNTER → 2016-10-15 | Outpatient (CLI) | payer OTHER ==
[~2016-10-15] MED LIST: AMOX1TAB43 PO; CIPR-255 PO; FLUT0.15 NAE; LORA-749 PO; METO25TA3 PO; METR-162 PO; OXYC1TAB3 PO; PANT40TA PO; PRT40 PO
[2016-10-15 13:43] LABS: THYROID STIMULATING HORMONE 1.3 uIu/ml (0.300-4.500)
== END | disposition home or self-care (01) ==
LOC: C.LABBC 09:32
PROVIDERS: ATTEND Internal Medicine
DX: R00.0 Tachycardia, unspecified (principal); R68.89 Other general symptoms and signs

== ENCOUNTER 2016-12-01 10:06 | Emergency (ER) | payer OTHER ==
[~2016-12-01] VITALS: Ht 165.1 cm; Wt 114.9 kg
[~2016-12-01 10:06] MED LIST changes: -CIPR-255 PO; -LORA-749 PO; +LORA10TA57 PO; -METO25TA3 PO; -METR-162 PO; -OXYC1TAB3 PO; -PANT40TA PO
[2016-12-01 10:10] VITALS: Ht 165.1 cm; Wt 114.9 kg
[2016-12-01] MEDS ORDERED: PANT40TA PO (10:47)
[2016-12-01] MEDS ORDERED: METO25TA3 PO (10:47)
[2016-12-01 10:48] LABS: URINE APPEARANCE CLEAR (CLEAR); URINE BILIRUBIN NEG (NEG); URINE COLOR YELLOW; URINE NITRITE NEG (NEG); URINE PH 6.5 (4.5-7.5); URINE SPECIFIC GRAVITY 1.017 (1.000-1.030); UROBILINOGEN NEG (NEG); ZZUR CULT IF INDIC CLEAN CATCH NO
[2016-12-01 10:54] LABS: MANUAL MICROSCOPIC REQUIRED? NO; REVIEW REQ? NO
[2016-12-01 10:59] LABS: BASO % 0.1 %; BASO ABS # 0.01 K/uL (0-0.2); COMPLETE YES; EOS % 1.2 %; HEMATOCRIT 40.7 % (37-47); IG% 0.3 %; LYMPH % 27.3 %; LYMPH ABS # 2.05 K/uL (1.2-3.4); MEAN CELL VOLUME 86.8 fL (80-100); MEAN CORPUSCULAR HEMOGLOBIN 27.9 pg (25-34); MEAN CORPUSCULAR HGB CONC 32.2 g/dl (32-36); MONO % 4.9 %; NEUT % 66.2 %; PLATELET COUNT 283 K/uL (130-400); RED BLOOD COUNT 4.69 M/uL (4.2-5.4); WHITE BLOOD COUNT 7.52 K/uL (4.8-10.8)
[2016-12-01 11:11] LABS: BUN/CREATININE RATIO 26.2 (10-20); CALCIUM 9.2 mg/dl (8.5-10.1); CREATININE 0.53 mg/dl (0.60-1.20); POTASSIUM 3.6 mmol/L (3.5-5.1)
[2016-12-01] MEDS ORDERED: OPTIRAY 320 IV PRN (11:15)
--- NOTE | 2016-12-01 12:27 | DIAGNOSTIC IMAGING REPORT ---
CT ABD/PELVIS IV CONTRAST ONLY CLINICAL HISTORY: rlq abd pain COMPARISON STUDY: None. TECHNIQUE: Following the IV administration of 93 mL of Optiray-320, CT scan of the abdomen and pelvis was performed from the lung bases to the proximal femurs. Images are reviewed in the axial, sagittal, and coronal planes. IV contrast was administered without complication. A dose lowering technique was utilized adhering to the principles of ALARA. CT DOSE: 1593.49 mGy.cm FINDINGS: Lower chest: There are bibasal atelectatic changes Liver: There is a 4.5 cm left lobe hepatic cyst. There is mild prominence of central intrahepatic biliary ducts. Gallbladder: Surgically absent Spleen: Normal in size and attenuation. Pancreas: Unremarkable. Adrenal glands: Unremarkable. Kidneys: There is symmetric renal cortical enhancement. The kidneys are normal in size without hydronephrosis. Bowel: There are no transition zones indicate bowel obstruction. There is colonic diverticulosis. There is infiltration the perisigmoid fat consistent with acute diverticulitis. The appendix appears normal. Peritoneum: There is no intraperitoneal free air or abdominal ascites. Vasculature: The abdominal aorta is normal in course and caliber. Adenopathy: None. Pelvic viscera: The bladder, and pelvic viscera are unremarkable. Skeletal structures: No destructive osseous lesions are seen. IMPRESSION: 1. Mild acute sigmoid diverticulitis. No evidence of peridiverticular abscess 2. Normal appendix 3. No evidence of bowel obstruction. No evidence of free air. Electronically signed by: Harrison Edgar M.D. 12/01/2016 12:26 PM Dictated Date/Time: 12/01/2016 12:21 PM
[2016-12-01] MEDS ORDERED: CIPROFLOXACIN 500 MG TAB PO STA (12:53)
[2016-12-01] MEDS ORDERED: METRONIDAZOLE 250 MG TAB PO STA (12:53)
[2016-12-01] MEDS ORDERED: METR-162 PO (12:56)
[2016-12-01] MEDS ORDERED: OXYC1TAB3 PO (12:56)
[2016-12-01] MEDS ORDERED: CIPR-255 PO (12:56)
[2016-12-01 13:13] VITALS: BP 141/90; PULSE 74; TEMP 36.6; O2SAT 98
--- NOTE | 2016-12-01 15:02 | EMERGENCY ROOM VISIT NOTE ---
History Report prepared by Jimy: Lindsey Kat Under the Supervision of: Dr. Braxton Bishop D.O. First contact with patient: 10:12 Chief Complaint: FLANK PAIN Stated Complaint: PAIN ON RT SIDE/ABD AREA History of Present Illness The patient is a 61 year old female who presents to the Emergency Room with complaints of constant right-sided flank pain beginning 3 days ago. The patient reports that moving both radiates and exacerbates the pain. She denies having any nausea, vomiting, diarrhea, chest pain, shortness of breath, urinary symptoms, and back pain. The patient reports that she has a history of a cholecystectomy but no history of an appendectomy. She also states that she has no history of kidney stones and that her last bowel movement was yesterday. Source of History: patient Onset: 3 days ago Position: other (right flank ) Timing: constant Modifying Factors (Worsening): movement Associated Symptoms: No chest pain, No SOB, No nausea, No back pain Review of Systems See HPI for pertinent positives & negatives. A total of 10 systems reviewed and were otherwise negative. Past Medical & Surgical Medical Problems: (1) Chronic cough (2) SIRS (systemic inflammatory response syndrome) Family History FH: heart disease Social History Smoking Status: Never Smoker Marital Status: Housing Status: lives with significant other Occupation Status: employed Current/Historical Medications Scheduled Ciprofloxacin Hcl (Cipro), 500 MG PO BID Metoprolol Succinate (Toprol Xl), 12.5 MG PO DAILY Metronidazole (Flagyl), 500 MG PO TID Pantoprazole (Protonix), 40 MG PO DAILY Scheduled PRN Oxycodone Immediate Rel Tab (Roxicodone Ir), 5 MG PO Q6H PRN for Pain Allergies Coded Allergies: No Known Allergies (Unverified , 09/25/16) Physical Exam Vital Signs Date Time Temp Pulse Resp B/P (MAP) Pulse Ox O2 Delivery O2 Flow Rate FiO2 12/01/16 13:13 36.6 74 16 141/90 98 12/01/16 13:04 74 16 141/90 98 Room Air 12/01/16 12:10 72 20 134/84 98 Room Air 12/01/16 10:10 36.6 84 18 159/100 93 Room Air Physical Exam GENERAL: Sitting upright in bed, alert, well appearing, well nourished, no distress, non-toxic EYE EXAM: normal conjunctiva OROPHARYNX: no exudate, no erythema, lips, buccal mucosa, and tongue normal and mucous membranes are moist NECK: supple, no nuchal rigidity, no adenopathy, non-tender LUNGS: Clear to auscultation. Normal chest wall mechanics HEART: no murmurs, S1 normal and S2 normal ABDOMEN: minimal tenderness in periumbilical region, no rebound or guarding. Positive bowel sounds. BACK: Back is symmetrical on inspection and there is no deformity, no midline tenderness, no CVA tenderness. SKIN: no rashes and no bruising UPPER EXTREMITIES: upper extremities are grossly normal. LOWER EXTREMITIES: No pitting edema. NEURO EXAM: Normal sensorium, cranial nerves II-XII intact, normal speech, no weakness of arms, no weakness of legs. Medical Decision & Procedures ER Provider Diagnostic Interpretation: CT scan: Radiology provided the following report CT: CT ABD/PELVIS IV CONTRAST ONLY CLINICAL HISTORY: rlq abd pain COMPARISON STUDY: None. TECHNIQUE: Following the IV administration of 93 mL of Optiray-320, CT scan of the abdomen and pelvis was performed from the lung bases to the proximal femurs. Images are reviewed in the axial, sagittal, and coronal planes. IV contrast was administered without complication. A dose lowering technique was utilized adhering to the principles of ALARA. CT DOSE: 1593.49 mGy.cm FINDINGS: Lower chest: There are bibasal atelectatic changes Liver: There is a 4.5 cm left lobe hepatic cyst. There is mild prominence of central intrahepatic biliary ducts. Gallbladder: Surgically absent Spleen: Normal in size and attenuation. Pancreas: Unremarkable. Adrenal glands: Unremarkable. Kidneys: There is symmetric renal cortical enhancement. The kidneys are normal in size without hydronephrosis. Bowel: There are no transition zones indicate bowel obstruction. There is colonic diverticulosis. There is infiltration the perisigmoid fat consistent with acute diverticulitis. The appendix appears normal. Peritoneum: There is no intraperitoneal free air or abdominal ascites. Vasculature: The abdominal aorta is normal in course and caliber. Adenopathy: None. Pelvic viscera: The bladder, and pelvic viscera are unremarkable. Skeletal structures: No destructive osseous lesions are seen. IMPRESSION: 1. Mild acute sigmoid diverticulitis. No evidence of peridiverticular abscess 2. Normal appendix 3. No evidence of bowel obstruction. No evidence of free air. Electronically signed by: Harrison Edgar M.D. 12/01/2016 12:26 PM Dictated Date/Time: 12/01/2016 12:21 PM Laboratory Results 12/01/16 10:40 Red Blood Count 4.69, Mean Corpuscular Volume 86.8, Mean Corpuscular Hemoglobin 27.9, Mean Corpuscular Hemoglobin Concent 32.2, Mean Platelet Volume 9.0, Neutrophils (%) (Auto) 66.2, Lymphocytes (%) (Auto) 27.3, Monocytes (%) (Auto) 4.9, Eosinophils (%) (Auto) 1.2, Basophils (%) (Auto) 0.1, Neutrophils # (Auto) 4.98, Lymphocytes # (Auto) 2.05, Monocytes # (Auto) 0.37, Eosinophils # (Auto) 0.09, Basophils # (Auto) 0.01 12/01/16 10:40 Test 12/01/16 10:33 12/01/16 10:40 Urine Color YELLOW Urine Appearance CLEAR (CLEAR) Urine pH 6.5 (4.5-7.5) Urine Specific [place] 1.017 (1.000-1.030) Urine Protein NEG (NEG) Urine Glucose (UA) NEG (NEG) Urine Ketones NEG (NEG) Urine Occult Blood NEG (NEG) Urine Nitrite NEG (NEG) Urine Bilirubin NEG (NEG) Urine Urobilinogen NEG (NEG) Urine Leukocyte Esterase NEG (NEG) Urine WBC (Auto) 1-5 /hpf (0-5) Urine RBC (Auto) 0-4 /hpf (0-4) Urine Hyaline Casts (Auto) 0 /lpf (0-5) Urine Epithelial Cells (Auto) 10-20 /lpf (0-5) Urine Bacteria (Auto) NEG (NEG) Urine Test NEG (NEG) White Blood Count 7.52 K/uL (4.8-10.8) Red Blood Count 4.69 M/uL (4.2-5.4) Hemoglobin 13.1 g/dL (12.0-16.0) Hematocrit 40.7 % (37-47) Mean Corpuscular Volume 86.8 fL (80-100) Mean Corpuscular Hemoglobin 27.9 pg (25-34) Mean Corpuscular Hemoglobin Concent 32.2 g/dl (32-36) Platelet Count 283 K/uL (130-400) Mean Platelet Volume 9.0 fL (7.4-10.4) Neutrophils (%) (Auto) 66.2 % Lymphocytes (%) (Auto) 27.3 % Monocytes (%) (Auto) 4.9 % Eosinophils (%) (Auto) 1.2 % Basophils (%) (Auto) 0.1 % Neutrophils # (Auto) 4.98 K/uL (1.4-6.5) Lymphocytes # (Auto) 2.05 K/uL (1.2-3.4) Monocytes # (Auto) 0.37 K/uL (0.11-0.59) Eosinophils # (Auto) 0.09 K/uL (0-0.5) Basophils # (Auto) 0.01 K/uL (0-0.2) RDW Standard Deviation 42.4 fL (36.4-46.3) RDW Coefficient of Variation 13.4 % (11.5-14.5) Immature Granulocyte % (Auto) 0.3 % Immature Granulocyte # (Auto) 0.02 K/uL (0.00-0.02) Anion Gap 5.0 mmol/L (3-11) Est Creatinine Clear Calc Drug Dose 144.6 ml/min Estimated GFR () 120.5 Estimated GFR (Non- 103.9 BUN/Creatinine Ratio 26.2 (10-20) Calcium Level 9.2 mg/dl (8.5-10.1) Total Bilirubin 0.4 mg/dl (0.2-1) Direct Bilirubin 0.1 mg/dl (0-0.2) Aspartate Amino Transf (AST/SGOT) 13 U/L (15-37) Alanine Aminotransferase (ALT/SGPT) 19 U/L (12-78) Alkaline Phosphatase 61 U/L (45-117) Total Protein 7.4 gm/dl (6.4-8.2) Albumin 3.6 gm/dl (3.4-5.0) Lipase 134 U/L (73-393) Laboratory results per my review. Medications Administered Medications (Trade) Dose Ordered Sig/Deborah Route Start Time Stop Time Status Last Admin Dose Admin Metronidazole (Flagyl Tab) 500 mg NOW STAT PO 12/01/16 12:53 12/01/16 12:54 DC 12/01/16 13:02 500 MG Ciprofloxacin (Cipro Tab) 500 mg NOW STAT PO 12/01/16 12:53 12/01/16 12:54 DC 12/01/16 13:02 500 MG ED Course ED COURSE: Vital signs were reviewed and showed situational hypertension. The patients medical record was reviewed The above diagnostic studies were performed and reviewed. ED treatments and interventions as stated above. 1020: The patient was evaluated in room B6. A complete history and physical examination was performed. 1240: The patient states that she feels as though she is at baseline. 1253: Ordered Cipro Tab 500 mg PO, Metronidazole 500 mg PO. 1310: Upon reevaluation, the patient is feeling better. I discussed the findings and the treatment plan with the patient. She verbalizes agreement and understanding. She was discharged home. Medical Decision Differential diagnoses includes but is not limited to gastritis, peptic ulcer disease, GERD, gallbladder disease, pancreatitis, small bowel obstruction, acute coronary syndrome, pericarditis, ischemic bowel, irritable bowel disease, irritable bowel syndrome, appendicitis, diverticulitis, malignancy, hernia, urinary tract infection, torsion, [/ectopic (if female)], perforation, trauma, infectious. Patient is a 61-year-old female who presents the ER for right flank/ periumbilical abdominal pain. Her exam is fairly benign. CBC along with BMP, LFTs, bilirubin and UA is negative. is negative. CT of her abdomen pelvis shows sigmoid diverticulitis. She's updated regards to findings. She is placed on Cipro and Flagyl. She was given OxyIR for pain relief at night. She was discharged to follow-up with her PCP in 2 days. Discussed with Pt concerning signs and symptoms to watch out for. Pt was instructed to follow up with their PCP and discussed with the patient their option to return to the ED at anytime for persistent or worsening symptoms. The appropriate anticipatory guidance and out-patient management, including indications for return to the emergency department, were explained at length to the patient and understood. [place] Drug Monitoring Program Search Results: patient reviewed within database, no issues identified Medication Reconcilliation Current Medication List: was personally reviewed by me Blood Pressure Screening Patient's blood pressure: Elevated blood pressure Impression Primary Impression: Diverticulitis Scribe Attestation The scribe's documentation has been prepared under my direction and personally reviewed by me in its entirety. I confirm that the note above accurately reflects all work, treatment, procedures, and medical decision making performed by me. Departure Information Dispostion Home / Self-Care Prescriptions Oxycodone Immediate Rel Tab (ROXICODONE IR) 5 Mg Tab 5 MG PO Q6H Y for Pain, #15 TAB Prov: Braxton BishopPorfirio, DO 12/01/16 Ciprofloxacin Hcl (CIPRO) 500 Mg Tab 500 MG PO BID, #20 TAB Prov: DarioBraxton, DO 12/01/16 Metronidazole (FLAGYL) 500 Mg Tab 500 MG PO TID for 10 Days, #30 TAB Prov: DarioBraxton, DO 12/01/16 Referrals Je Da Silva D.O.[facility]. (PCP) Forms HOME CARE DOCUMENTATION FORM, IMPORTANT VISIT INFORMATION Patient Instructions ED Diverticulitis, My [facility] Additional Instructions Please follow up with your primary care doctor or if you are a student, [facility] with in the next 24 hours. Any worsening of your symptoms, please return to the ED immediately. This includes any fevers greater than 100.4, worsening pain, chest pain, shortness breath, persistent nausea, vomiting, unable to eat or drink, or any other concerning signs or symptoms from your standpoint. You were given medications during this visit that will inhibit your ability to drive, operate machinery and work. Please do NOT drive, operate machinery or work for the next 12hrs. You were also given a prescription for a narcotic. While taking this medication you should also not drive, operate machinery and or work. Please take antibiotics as prescribed and follow up with your primary care doctor in 1-2 days for reevaluation. Problem Qualifiers Primary Impression: Diverticulitis Diverticulitis site: large intestine Diverticulitis bleeding: unspecified bleeding status Diverticulitis complication: without perforation or abscess Qualified Codes: K57.32 - Diverticulitis of large intestine without perforation or abscess without bleeding
== END 2016-12-01 13:14 | disposition home or self-care (01) ==
LOC: C.EDB 10:09
DX: K57.32 Diverticulitis of large intestine without perforation or abscess without bleeding (principal); R65.10 Systemic inflammatory response syndrome (SIRS) of non-infectious origin without acute organ dysfunction; Z82.49 Family history of ischemic heart disease and other diseases of the circulatory system

== ENCOUNTER 2016-12-08 01:25 | Emergency (ER) | payer OTHER ==
[~2016-12-08] VITALS: Ht 165.1 cm; Wt 113.0 kg
[~2016-12-08 01:25] MED LIST changes: -AMOX1TAB43 PO; +CIPR-255 PO; -FLUT0.15 NAE; -LORA10TA57 PO; +METO25TA3 PO; +METR-162 PO; +OXYC1TAB3 PO; +PANT40TA PO; -PRT40 PO
[2016-12-08 01:31] VITALS: TEMP 36.7; Ht 165.1 cm; Wt 113.0 kg
[2016-12-08] MEDS ORDERED: MoRPHine SULFATE 4 MG/ML 1 ML CARP\\VIAL IV STA (01:37)
[2016-12-08] MEDS ORDERED: ONDANSETRON INJ 2 MG/ML 2 ML VIAL IV STA (01:37)
[2016-12-08 01:55] VITALS: O2SAT 94
[2016-12-08 02:15] LABS: BASO % 0.1 %; BASO ABS # 0.01 K/uL (0-0.2); COMPLETE YES; EOS % 0.6 %; HEMATOCRIT 38.9 % (37-47); IG% 0.3 %; LYMPH % 14.8 %; MEAN CELL VOLUME 85.7 fL (80-100); MEAN CORPUSCULAR HEMOGLOBIN 29.1 pg (25-34); MEAN CORPUSCULAR HGB CONC 33.9 g/dl (32-36); MEAN PLATELET VOLUME 8.8 fL (7.4-10.4); MONO % 5.3 %; NEUT % 78.9 %; PLATELET COUNT 269 K/uL (130-400); RED BLOOD COUNT 4.54 M/uL (4.2-5.4); WHITE BLOOD COUNT 10.78 K/uL (4.8-10.8)
[2016-12-08 02:49] LABS: ALT/SGPT 29 U/L (12-78); BLOOD UREA NITROGEN 15 mg/dl (7-18); BUN/CREATININE RATIO 24.2 (10-20); CALCIUM 8.4 mg/dl (8.5-10.1); CARBON DIOXIDE 26 mmol/L (21-32); CHLORIDE 107 mmol/L (98-107); CREATININE 0.63 mg/dl (0.60-1.20); GLUCOSE 145 mg/dl (70-99); MAGNESIUM 2.1 mg/dl (1.8-2.4); POTASSIUM 3.5 mmol/L (3.5-5.1); SODIUM 141 mmol/L (136-145)
[2016-12-08 02:51] LABS: ALKALINE PHOSPHATASE 58 U/L (45-117); AST/SGOT 17 U/L (15-37); CKMB/CK RATIO 1.1 (0-3.0)
--- NOTE | 2016-12-08 03:41 | EMERGENCY ROOM VISIT NOTE ---
History First contact with patient: 01:34 Chief Complaint: ABDOMINAL PAIN Stated Complaint: PAIN IN RIGHT SIDE History of Present Illness The patient is a 61 year old female who presents to the Emergency Room with complaints of right upper quadrant pain since 5 PM tonight described as aching, ranging in severity 7 out of 10 worse with movement and better with rest. Patient was seen here last week and diagnosed with diverticulitis. She's been taking her Cipro and Flagyl as directed. Patient states she's never had pain in the left lower quadrant pain. Her pain has been in the right upper quadrant. Status post cholecystectomy many years ago. She saw her family care doctor today and was feeling fine then. The pain resumed tonight. Patient went on a long car ride today and thought she might of blayne her abdomen while sitting in the car but states this feels different. Patient denies chest pain, dyspnea , nausea, vomiting, diarrhea, back pain, urinary symptoms, leg pain or swelling. Patient does not smoke. No prior heart disease. Her mother had heart disease in her 70s. Patient denies diabetes, cholesterol or high blood pressure. She only takes Protonix. She states this does not feel like her reflux. No colonoscopy or endoscopy in the past. Patient denies alcohol use. Review of Systems See HPI for pertinent positives & negatives. A total of 10 systems reviewed and were otherwise negative. Past Medical/Surgical History Medical Problems: (1) Chronic cough (2) SIRS (systemic inflammatory response syndrome) Family History FH: heart disease Social History Smoking Status: Never Smoker Marital Status: Housing Status: lives with significant other Occupation Status: employed Current/Historical Medications Scheduled Ciprofloxacin Hcl (Cipro), 500 MG PO BID Metoprolol Succinate (Toprol Xl), 12.5 MG PO DAILY Metronidazole (Flagyl), 500 MG PO TID Pantoprazole (Protonix), 40 MG PO DAILY Scheduled PRN Oxycodone Immediate Rel Tab (Roxicodone Ir), 5 MG PO Q6H PRN for Pain Allergies Coded Allergies: No Known Allergies (Unverified , 12/08/16) Physical Exam Vital Signs Date Time Temp Pulse Resp B/P (MAP) Pulse Ox O2 Delivery O2 Flow Rate FiO2 12/08/16 03:05 88 18 134/73 94 Room Air 12/08/16 02:01 136/92 12/08/16 01:59 103 12/08/16 01:57 148/92 12/08/16 01:55 94 Room Air 12/08/16 01:31 36.7 104 20 143/83 94 Room Air Physical Exam VITALS: Vitals are noted on the nurse's note and reviewed by myself. Vital signs stable. GENERAL: Pleasant female, in no acute distress, nondiaphoretic, well-developed well-nourished. SKIN: The skin was without rashes, erythema, edema, or bruising. There is no tenting of the skin. Capillary reflex less than 2 seconds. HEAD: Normocephalic atraumatic. EARS: External auditory canals clear, tympanic membranes pearly lopez without erythema or effusion bilaterally. EYES: Pupils equal round and reactive to light and accommodation. Conjunctivae without injection, sclerae without icterus. Extraocular movements intact. NOSE: Patent, turbinates without inflammation or discharge. MOUTH: Mucous membranes moist. pharynx without erythema or exudate. Uvula midline. Airway patent. Tongue does not deviate. NECK: Supple without nuchal rigidity. No lymphadenopathy. No thyromegaly. Cervical spine is nontender. No JVD. HEART: Regular rate and rhythm without murmurs gallops or rubs. LUNGS: Clear to auscultation bilaterally without wheezes, rales or rhonchi. No dullness to percussion. No retractions or accessory muscle use. ABDOMEN: Positive bowel sounds x 4. Normal tympanic percussion. Soft, protuberant, obese, tender to palpation right upper quadrant, no CVA tenderness , no rashes, postsurgical scars present, without masses or organomegaly. No guarding or rebound tenderness. MUSCULOSKELETAL: No muscle atrophy, erythema, or edema noted. NEURO: Patient was alert and oriented to person place and time. Normal sensation to light and sharp touch. No focal neurological deficits. Medical Decision & Procedures Laboratory Results 12/08/16 01:58 Red Blood Count 4.54, Mean Corpuscular Volume 85.7, Mean Corpuscular Hemoglobin 29.1, Mean Corpuscular Hemoglobin Concent 33.9, Mean Platelet Volume 8.8, Neutrophils (%) (Auto) 78.9, Lymphocytes (%) (Auto) 14.8, Monocytes (%) (Auto) 5.3, Eosinophils (%) (Auto) 0.6, Basophils (%) (Auto) 0.1, Neutrophils # (Auto) 8.51, Lymphocytes # (Auto) 1.60, Monocytes # (Auto) 0.57, Eosinophils # (Auto) 0.06, Basophils # (Auto) 0.01 12/08/16 01:58 Test 12/08/16 01:58 White Blood Count 10.78 K/uL (4.8-10.8) Red Blood Count 4.54 M/uL (4.2-5.4) Hemoglobin 13.2 g/dL (12.0-16.0) Hematocrit 38.9 % (37-47) Mean Corpuscular Volume 85.7 fL (80-100) Mean Corpuscular Hemoglobin 29.1 pg (25-34) Mean Corpuscular Hemoglobin Concent 33.9 g/dl (32-36) Platelet Count 269 K/uL (130-400) Mean Platelet Volume 8.8 fL (7.4-10.4) Neutrophils (%) (Auto) 78.9 % Lymphocytes (%) (Auto) 14.8 % Monocytes (%) (Auto) 5.3 % Eosinophils (%) (Auto) 0.6 % Basophils (%) (Auto) 0.1 % Neutrophils # (Auto) 8.51 K/uL (1.4-6.5) Lymphocytes # (Auto) 1.60 K/uL (1.2-3.4) Monocytes # (Auto) 0.57 K/uL (0.11-0.59) Eosinophils # (Auto) 0.06 K/uL (0-0.5) Basophils # (Auto) 0.01 K/uL (0-0.2) RDW Standard Deviation 43.0 fL (36.4-46.3) RDW Coefficient of Variation 13.7 % (11.5-14.5) Immature Granulocyte % (Auto) 0.3 % Immature Granulocyte # (Auto) 0.03 K/uL (0.00-0.02) Anion Gap 8.0 mmol/L (3-11) Est Creatinine Clear Calc Drug Dose 120.5 ml/min Estimated GFR () 113.8 Estimated GFR (Non- 98.2 BUN/Creatinine Ratio 24.2 (10-20) Calcium Level 8.4 mg/dl (8.5-10.1) Magnesium Level 2.1 mg/dl (1.8-2.4) Total Bilirubin 0.3 mg/dl (0.2-1) Direct Bilirubin < 0.1 mg/dl (0-0.2) Aspartate Amino Transf (AST/SGOT) 17 U/L (15-37) Alanine Aminotransferase (ALT/SGPT) 29 U/L (12-78) Alkaline Phosphatase 58 U/L (45-117) Total Creatine Kinase 54 U/L (26-192) Creatine Kinase MB 0.6 ng/ml (0.5-3.6) Creatine Kinase MB Ratio 1.1 (0-3.0) Troponin I < 0.015 ng/ml (0-0.045) Total Protein 7.2 gm/dl (6.4-8.2) Albumin 3.5 gm/dl (3.4-5.0) Lipase 131 U/L (73-393) Medications Administered Medications (Trade) Dose Ordered Sig/Deborah Route Start Time Stop Time Status Last Admin Dose Admin Morphine Sulfate (MoRPHine SULFATE INJ) 4 mg NOW STAT IV 12/08/16 01:37 12/08/16 01:42 DC 12/08/16 02:02 4 MG Ondansetron HCl (Zofran Inj) 4 mg NOW STAT IV 12/08/16 01:37 12/08/16 01:43 DC 12/08/16 02:01 4 MG ED Course Prior records/ancillary studies reviewed. Triage Nursing notes reviewed. Additional history obtained from family The patient's history was concerning for abdominal pain. Differential diagnosis: Etiologies such as appendicitis, diverticulitis, cardiac, PUD, biliary pathology , UTI, pancreatitis, obstruction, mesenteric ischemia, aortic pathology, infections, inflammatory bowel disease, renal colic, as well as others were entertained. Physical examination findings: As above. ER treatment provided: Morphine, Zofran, IV fluids On reassessment the patient felt better. Diagnostics interpreted by me: ECG: Normal sinus, normal intervals, no acute ST-T wave changes, with an occasional PVC, rate of 106. Impression sinus tachycardia with an occasional PVC interpreted by myself The labs revealed hyperglycemia without DKA. Negative troponin. No leukocytosis Imaging studies: US RUQ: Prior cholecystectomy with common bile duct to 9 mm. Intrahepatic bile ducts are also dilated. Correlate with LFTs. If concerned, could consider further investigation with MRCP. Cyst involving the left lobe of the liver measuring 3.8 cm. Prior cholecystectomy. No other abnormalities. Radiologist: Thee Zhong M.D. Checks x-ray with no acute consolidation, pneumothorax or free air, right hemidiaphragm elevated, scoliosis per my interpretation [~ rep ct add3]] CT ABD/PELVIS IV CONTRAST ONLY CLINICAL HISTORY: rlq abd pain COMPARISON STUDY: None. TECHNIQUE: Following the IV administration of 93 mL of Optiray-320, CT scan of the abdomen and pelvis was performed from the lung bases to the proximal femurs. Images are reviewed in the axial, sagittal, and coronal planes. IV contrast was administered without complication. A dose lowering technique was utilized adhering to the principles of ALARA. CT DOSE: 1593.49 mGy.cm FINDINGS: Lower chest: There are bibasal atelectatic changes Liver: There is a 4.5 cm left lobe hepatic cyst. There is mild prominence of central intrahepatic biliary ducts. Gallbladder: Surgically absent Spleen: Normal in size and attenuation. Pancreas: Unremarkable. Adrenal glands: Unremarkable. Kidneys: There is symmetric renal cortical enhancement. The kidneys are normal in size without hydronephrosis. Bowel: There are no transition zones indicate bowel obstruction. There is colonic diverticulosis. There is infiltration the perisigmoid fat consistent with acute diverticulitis. The appendix appears normal. Peritoneum: There is no intraperitoneal free air or abdominal ascites. Vasculature: The abdominal aorta is normal in course and caliber. Adenopathy: None. Pelvic viscera: The bladder, and pelvic viscera are unremarkable. Skeletal structures: No destructive osseous lesions are seen. IMPRESSION: 1. Mild acute sigmoid diverticulitis. No evidence of peridiverticular abscess 2. Normal appendix 3. No evidence of bowel obstruction. No evidence of free air. Electronically signed by: Harrison Edgar M.D. Exam and history seem consistent with right upper quadrant pain that could be related to a retained stone. Patient did have some dilation of her biliary ducts on ultrasound. Her pain was improved. She did request to leave. She is advised to return outpatient MRCP with her family care doctor next few days and to do bland diet. She is advised to call her family care doctor in the morning to make a follow-up for this. She is advised to return to the ER immediately for fevers, abdominal pain, chest pain, worsening signs or symptoms or as needed. Patient did not have an acute abdomen on exam. She is well- appearing.. Patient was neurovascularly and neurologically intact. By the evaluation outlined above emergent etiologies such as appendicitis, diverticulitis, PUD, UTI, pancreatitis, obstruction, mesenteric ischemia, aortic pathology, infections, inflammatory bowel disease, renal colic, as well as others were deemed relatively unlikely. The pt informed about the findings as listed above. All questions were answered and pleased with the treatment. Return instructions were outlined and the patient was discharged in stable condition. Outpatient prescription management: OxyIR Referral: The patient was referred back to their primary care physician for follow-up in 2 to 3 days for a recheck of the current condition. Case reviewed with my attending. Medical Decision As above [place] Drug Monitoring Program Search Results: patient reviewed within database, no issues identified Impression Primary Impression: Right upper quadrant abdominal pain Additional Impression: Hyperglycemia Departure Information Dispostion Home / Self-Care Condition GOOD Referrals Je Da Silva D.O.Int.Med. (PCP) Patient Instructions My [facility] Additional Instructions DO NOT drive, drink alcohol, operate machinery, or perform dangerous activities today. You were given medications in the ER that can affect your ability to safely function or operate a vehicle. Oxycodone (OxyIR) 5mg: Take 1-2 pills every four hours for breakthrough pain. Avoid alcohol, operating machinery or dangerous equipment, working on ladders or roofs, DRIVING, or situations where being under the influence may be dangerous. It is recommended to use an gfog-sun-[id number] stool softener such as Colace, 100mg twice daily while taking this medication to avoid constipation. Ibuprofen(Motrin, Advil) may be used for fever or pain. Use 600mg every six hours as needed. Take with food. Avoid using more than 2400mg in a 24 hour period. Do not use 2400mg per day for more than three consecutive days without physician direction. Prolonged inappropriate use can lead to stomach upset or ulcers. (AND/OR) Acetaminophen(Tylenol) may be used for fever or pain. Use 1000mg every six hours as needed. Avoid using more than 3000mg in a 24 hour period. Zofran 4mg: Take one every six hours as needed for nausea. Avoid alcohol, operating machinery or dangerous equipment, working on ladders or roofs, DRIVING , or situations where being under the influence may be dangerous. Your blood sugar slightly high today. Recheck this with the family care doctor. Rest and drink plenty of fluids as tolerated. Slow sips of water or sports drinks are recommended instead of large amounts all at once. Continue current medications. Recommend bland low-fat diet until symptoms resolve. Return to the ER immediately for worsening or persistent abdominal pain, vomiting, fevers, chest pains, difficulty breathing, black or bloody stools, worsening of your condition, or as needed. Follow up with your primary physician in 24 hours for a recheck of your current condition. Call in the morning and let him know that you were in the ER. Recommend outpatient MRCP. Problem Qualifiers
[2016-12-08] MEDS ORDERED: OXYC1TAB3 PO (03:44)
[2016-12-08] MEDS ORDERED: OXYCODONE IR HOME PACK PO ONE (03:45)
[2016-12-08] MEDS ORDERED: ONDANSETRON HOME PACK 4MG OD TAB PO ONE (03:45)
[2016-12-08 03:55] VITALS: BP 117/83; PULSE 94; O2SAT 93
--- NOTE | 2016-12-08 07:09 | DIAGNOSTIC IMAGING REPORT ---
ABDOMINAL ULTRASOUND, RIGHT UPPER QUADRANT HISTORY: Right upper quadrant abdominal pain. COMPARISON: Abdomen and pelvis CT 12/01/2016. FINDINGS: Pancreas: Partially obscured by overlying bowel gas. The visualized portion of the pancreas appear unremarkable. Liver: A left hepatic lobe cyst measuring 4 cm. Mild intrahepatic bile duct dilatation. Gallbladder: The gallbladder is surgically absent. CBD: 9 mm. Right kidney: No hydronephrosis. IMPRESSION: 1. Cholecystectomy. 2. Mild intra and extra hepatic bile duct dilatation. This may be due to the patient's postcholecystectomy state. Correlate with LFTs. 3. Hepatic cyst. Electronically signed by: Anthony Lassiter M.D. 12/08/2016 7:07 AM Dictated Date/Time: 12/08/2016 7:05 AM
--- NOTE | 2016-12-08 07:12 | DIAGNOSTIC IMAGING REPORT ---
SINGLE VIEW CHEST CLINICAL HISTORY: Atypical chest pain. FINDINGS: An AP, portable, upright chest radiograph is compared to chest x-ray and chest CT dated 09/25/2016. The examination is degraded by portable technique and patient rotation. The cardiomediastinal silhouette is unremarkable. There are low lung lungs with bibasilar atelectasis. No airspace consolidation is seen typical for pneumonia. No pleural effusion are pneumothorax is identified. The skeletal structures are osteopenic. Degenerative change and scoliosis are noted in the thoracic spine. IMPRESSION: Low lung volumes with no acute cardiopulmonary abnormality. Electronically signed by: Hari Rodrigez M.D. 12/08/2016 7:11 AM Dictated Date/Time: 12/08/2016 7:10 AM
== END 2016-12-08 03:55 | disposition home or self-care (01) ==
LOC: C.EDB 01:26
DX: R10.11 Right upper quadrant pain (principal); R73.9 Hyperglycemia, unspecified; K57.92 Diverticulitis of intestine, part unspecified, without perforation or abscess without bleeding; Z82.49 Family history of ischemic heart disease and other diseases of the circulatory system; Z79.2 Long term (current) use of antibiotics; Z79.899 Other long term (current) drug therapy

== ENCOUNTER → 2017-04-06 | Outpatient (CLI) | payer OTHER ==
[~2017-04-06] VITALS: Ht 165.1 cm; Wt 111.5 kg
[~2017-04-06] MED LIST changes: +CETI10TA84 PO; +LACTATED RINGER'S 1000ML 1,000 ML IV SCH; -METO25TA3 PO; +METO25TA4 PO; -METR-162 PO; +MULT-506 PO
[2017-04-06 10:00] VITALS: Ht 165.1 cm; Wt 111.5 kg
--- NOTE | 2017-04-06 10:32 | PAT Medication Instructions ---
Service Date Apr 06, 2017. Current Home Medication List Cetirizine (Zyrtec), 10 MG PO HS Metoprolol Succinate (Toprol Xl), 12.5 MG PO QAM Multivitamin (Multivitamin), 1 TAB PO prn Pantoprazole (Protonix), 40 MG PO QAM Medication Instructions For Your Scheduled Surgery - Hold the following medications the morning of surgery: Multivitamin (Multivitamin), 1 TAB PO prn - Take the following medications the morning of surgery with a sip of water: Metoprolol Succinate (Toprol Xl), 12.5 MG PO QAM Pantoprazole (Protonix), 40 MG PO QAM - Take the following medications as scheduled the night before surgery: Cetirizine (Zyrtec), 10 MG PO HS If you have any questions please call us at [phone] or [phone] or [phone]
[2017-04-06 11:21] LABS: BASO % 0.3 %; BASO ABS # 0.02 K/uL (0-0.2); EOS % 1.4 %; HEMATOCRIT 38.8 % (37-47); HEMOGLOBIN 13.3 g/dL (12.0-16.0); IG# 0.02 K/uL (0.00-0.02); LYMPH % 31.9 %; LYMPH ABS # 2.23 K/uL (1.2-3.4); MEAN CELL VOLUME 85.8 fL (80-100); MEAN CORPUSCULAR HEMOGLOBIN 29.4 pg (25-34); MEAN CORPUSCULAR HGB CONC 34.3 g/dl (32-36); MONO % 5.7 %; NEUT % 60.4 %; NEUT ABS # 4.23 K/uL (1.4-6.5); PLATELET COUNT 260 K/uL (130-400); RED CELL DISTRIBUTION WIDTH CV 13.5 % (11.5-14.5); RED CELL DISTRIBUTION WIDTH SD 42.6 fL (36.4-46.3)
[2017-04-06 11:30] LABS: CALCIUM 8.9 mg/dl (8.5-10.1); CREATININE 0.54 mg/dl (0.60-1.20); POTASSIUM 3.9 mmol/L (3.5-5.1)
--- NOTE | 2017-06-01 13:22 | CODING QUERY NO DIAGNOSIS ---
TREATMENT RENDERED WITHOUT A DIAGNOSIS : 57 To promote full compliance with coding requirements relating to patient care, physician participation is requested in all cases of enterprise systems architect uncertainty. Please assist us with providing a diagnosis/symptom for the test(s) below: A diagnosis/symptom was not documented on your Order. A valid diagnosis/symptom is required to bill all insurances. Please remember that we are unable to code a diagnosis of rule out, probable, possible, questionable, or suspected. Tests that require a diagnosis: DOS: 04/06/17 * CBC WITH AUTO DIFFER DIAGNOSIS: Provider Signature: Date: Thank you Tomasa Gould [facility] Information Management Once completed, please kindly fax back to [phone] For questions please call [phone]
--- NOTE | 2017-06-01 13:25 | CODING QUERY NO DIAGNOSIS ---
TREATMENT RENDERED WITHOUT A DIAGNOSIS : 57 To promote full compliance with coding requirements relating to patient care, physician participation is requested in all cases of health information coder uncertainty. Please assist us with providing a diagnosis/symptom for the test(s) below: A diagnosis/symptom was not documented on your Order. A valid diagnosis/symptom is required to bill all insurances. Please remember that we are unable to code a diagnosis of rule out, probable, possible, questionable, or suspected. Tests that require a diagnosis: DOS: 04/06/17 * PARTIAL RENAL PROFILE DIAGNOSIS: * ECG ROUTINE DIAGNOSIS: Provider Signature: Date: Thank you Tomasa Gould [facility] Information Management Once completed, please kindly fax back to [phone] For questions please call [phone]
== END | disposition home or self-care (01) ==
LOC: C.LAB 08:00 → EDSTATUS 04-23 07:00
PROVIDERS: ATTEND Obstetrics & Gynecology
DX: N93.9 Abnormal uterine and vaginal bleeding, unspecified (principal)

== ENCOUNTER 2021-04-01 08:11 | Inpatient (IN) ==
[2021-04-01] MEDS ORDERED: dexAMETHasone**PF** 10 MG/ML VIAL IV ONE (08:30)
--- NOTE | 2021-04-01 08:46 | Emergency Department Note ---
History of Present Illness General Chief complaint: Respiratory Problems Stated complaint: COVID POS 03/27/21 LOW O2 Time Seen by Provider: 04/01/21 08:20 Source: patient Mode of arrival: ambulatory Limitations: no limitations History of Present Illness This patient is a 65-year-old female who presents to the emergency department for evaluation of low oxygen levels and COVID-19 infection. Patient states that she initially developed flulike symptoms 6 to 7 days ago. She tested positive for COVID-19 5 days ago at [facility]. She was started on amoxicillin at that time as they suspected she had pneumonia. She does state that she was seen in the emergency department 2 days ago and given a dose of steroids and states that her oxygen levels were "borderline." She has been monitoring her oxygen levels at home and states that they dropped to 84% today. She feels short of breath especially with any exertion. She denies any chest pain. She did have some vomiting initially, is no longer vomiting but states that she has no appetite and has not been eating much. Home Medications Medication Instructions Recorded Confirmed Type amoxicillin 500 mg capsule 1,000 mg PO TID 03/31/21 04/01/21 History pantoprazole 20 mg tablet,delayed 20 mg PO DAILY 03/31/21 04/01/21 History release Sambucus Gummies 2 ea PO DAILY 04/01/21 04/01/21 History Allergies Allergy/AdvReac Type Severity Reaction Status Date / Time No Known Allergies Allergy Verified 04/01/21 11:20 Past Med/Surg History Medical History GERD (gastroesophageal reflux disease) Prediabetes Surgical History History of arthroscopic knee surgery History of cholecystectomy History of tubal ligation Family History Sister Breast cancer Social History Smoking Status: Never smoker Hx Alcohol Use: No Preferred Language: Slovak Feels Safe at Home: Yes Review of Systems A total of 10 systems reviewed and were otherwise negative Physical Exam Vital Signs Vital Signs - 24 hr 04/01/21 08:14 04/01/21 08:24 04/01/21 08:29 Temperature 37.5 C Temperature Source Skin Pulse Rate 91 H Pulse Rate from SpO2 Sensor Pulse Rhythm Respiratory Rate 20 Respiratory Effort / Characteristics Respiratory Depth Respiratory Pattern Blood Pressure 105/65 Blood Pressure Mean 78 Pulse Oximetry 88 L 80 L 80 L Oxygen Delivery Method Room Air Room Air Room Air Nasal Cannula Oxygen Flow Rate Sepsis Recent Fever Within 48 Hours Yes Sepsis New/Unexplained Change in Mental Status No Sepsis Action Taken by Nursing No Action Required Oxygen Flow Rate - Titration 3 Pulse Oximetry Post Tiitration 92 04/01/21 08:46 04/01/21 08:50 04/01/21 09:00 Temperature Temperature Source Pulse Rate 88 95 H 88 Pulse Rate from SpO2 Sensor 95 H 86 Pulse Rhythm Regular Respiratory Rate 16 18 22 Respiratory Effort / Characteristics Respiratory Depth Respiratory Pattern Blood Pressure 118/66 Blood Pressure Mean 83 Pulse Oximetry 95 94 95 Oxygen Delivery Method Nasal Cannula Nasal Cannula Nasal Cannula Oxygen Flow Rate 2 3 3 Sepsis Recent Fever Within 48 Hours Sepsis New/Unexplained Change in Mental Status Sepsis Action Taken by Nursing Oxygen Flow Rate - Titration Pulse Oximetry Post Tiitration 04/01/21 09:06 Temperature Temperature Source Pulse Rate Pulse Rate from SpO2 Sensor Pulse Rhythm Respiratory Rate Respiratory Effort / Characteristics Labored Nasal Flaring Respiratory Depth Normal Respiratory Pattern Regular Blood Pressure Blood Pressure Mean Pulse Oximetry Oxygen Delivery Method Nasal Cannula Oxygen Flow Rate 2 Sepsis Recent Fever Within 48 Hours Sepsis New/Unexplained Change in Mental Status Sepsis Action Taken by Nursing Oxygen Flow Rate - Titration Pulse Oximetry Post Tiitration VITALS: Vitals are noted on the nurse's note and reviewed by myself. GENERAL: This is a 65-year-old female, in no acute distress, well-developed well-nourished. SKIN: The skin was without rashes. EARS: External auditory canals clear, tympanic membranes pearly lopez without erythema or effusion bilaterally. EYES: Pupils equal round and reactive to light and accommodation. NOSE: Patent, turbinates without inflammation or discharge. MOUTH: Mucous membranes somewhat dry. NECK: Supple without nuchal rigidity. No lymphadenopathy. HEART: Regular rate and rhythm without murmurs gallops or rubs. LUNGS: Diminished breath sounds throughout bilaterally. EXTREMITIES: No pitting edema of the lower extremities. NEURO: Patient was alert and oriented to person place and time. Course Administered Medications Sodium Chloride (Sodium Chloride 0.9% 10ml Flush) 30 ml IV Q24H ORLIN Stop: 04/05/21 12:01 Last Admin: 04/01/21 13:48 Dose: 30 ml Documented by: [id number] Discontinued Medications Dexamethasone Sodium Phosphate (DexamethasonePf 10 Mg/Ml Vial) 6 mg IV NOW ONE Stop: 04/01/21 08:31 Last Admin: 04/01/21 08:55 Dose: 6 mg Documented by: [id number] Remdesivir 200 mg/ Sodium (Chloride) 250 mls @ 125 mls/hr IV ONE STA; Protocol Stop: 04/01/21 11:59 Last Admin: 04/01/21 11:19 Dose: 125 mls/hr Documented by: [id number] Ioversol (Optiray 320 125ml) 120 ml IV ONCE ONE Stop: 04/01/21 11:21 Last Admin: 04/01/21 11:01 Dose: 120 ml Documented by: [id number] Potassium Chloride (Potassium Chloride Crtab 20 Meq Tabcr) 40 meq PO NOW STA Stop: 04/01/21 10:03 Last Admin: 04/01/21 11:19 Dose: 40 meq Documented by: [id number] Medical Decision Making Differential Diagnosis Reactive airway disease, pneumonia, pneumothorax, COPD, CHF, infections, cardiac ischemia, pulmonary embolism, musculoskeletal, gastrointestinal, as well as other pathologies. Home Medications Current Medication List: was personally reviewed by me Laboratory Data Attestation: I reviewed the patient's lab results. Result diagrams: 04/01/21 08:59 04/01/21 08:59 Lab Results 04/01/21 04/01/21 04/01/21 Range/Units 08:59 08:59 08:59 WBC 9.17 (4.8-10.8) K/uL RBC 4.45 (4.2-5.4) M/uL Hgb 13.1 (12.0-16.0) g/dL Hct 38.6 (37-47) % MCV 86.7 (80-100) fL MCH 29.4 (25-34) pg MCHC 33.9 (32-36) g/dL RDW Std Deviation 44.3 (36.4-46.3) fL RDW Coeff of Vitaly 13.8 (11.5-14.5) % Plt Count 250 (130-400) K/uL MPV 9.6 (7.4-10.4) fL Immature Gran % (Auto) 0.3 % Neut % (Auto) 89.9 % Lymph % (Auto) 7.2 % Storey % (Auto) 2.5 % Eos % (Auto) 0.0 % Baso % (Auto) 0.1 % Neut # (Auto) 8.24 H (1.4-6.5) K/uL Lymph # (Auto) 0.66 L (1.2-3.4) K/uL Storey # (Auto) 0.23 (0.11-0.59) K/uL Eos # (Auto) 0.00 (0-0.5) K/uL Baso # (Auto) 0.01 (0-0.2) K/uL Immature Gran # (Auto) 0.03 H (0.00-0.02) K/uL D-Dimer 800 H* (0-500) ug/L FEU Sodium 137 (136-145) mmol/L Potassium 3.2 L (3.5-5.1) mmol/L Chloride 106 (98-107) mmol/L Carbon Dioxide 23 (21-32) mmol/L Anion Gap 9.0 (3-11) BUN 22 H (7-18) mg/dl Creatinine 0.94 D (0.6-1.2) mg/dl Est Cr Clr Drug Dosing 73.7 ml/min Est GFR ( Amer) 74.8 ml/min Est GFR (Non-Af Amer) 64.6 ml/min BUN/Creatinine Ratio 23.0 H (10-20) Glucose 141 H (70-99) mg/dl Calcium 8.6 (8.5-10.1) mg/dl Magnesium (1.8-2.4) mg/dl Total Bilirubin 0.4 (0.2-1) mg/dl AST 27 (15-37) U/L ALT 17 (12-78) Alkaline Phosphatase 48 (45-117) U/L C-Reactive Protein 7.69 H (0-0.29) mg/dl Total Protein 7.2 (6.4-8.2) gm/dl Albumin 2.6 L (3.4-5.0) gm/dl Globulin 4.6 H (2.5-4.0) gm/dl Albumin/Globulin Ratio 0.6 L (0.9-2) Procalcitonin (0-0.5) ng/ml 04/01/21 04/01/21 Range/Units 08:59 08:59 WBC (4.8-10.8) K/uL RBC (4.2-5.4) M/uL Hgb (12.0-16.0) g/dL Hct (37-47) % MCV (80-100) fL MCH (25-34) pg MCHC (32-36) g/dL RDW Std Deviation (36.4-46.3) fL RDW Coeff of Vitaly (11.5-14.5) % Plt Count (130-400) K/uL MPV (7.4-10.4) fL Immature Gran % (Auto) % Neut % (Auto) % Lymph % (Auto) % Storey % (Auto) % Eos % (Auto) % Baso % (Auto) % Neut # (Auto) (1.4-6.5) K/uL Lymph # (Auto) (1.2-3.4) K/uL Storey # (Auto) (0.11-0.59) K/uL Eos # (Auto) (0-0.5) K/uL Baso # (Auto) (0-0.2) K/uL Immature Gran # (Auto) (0.00-0.02) K/uL D-Dimer (0-500) ug/L FEU Sodium (136-145) mmol/L Potassium (3.5-5.1) mmol/L Chloride (98-107) mmol/L Carbon Dioxide (21-32) mmol/L Anion Gap (3-11) BUN (7-18) mg/dl Creatinine (0.6-1.2) mg/dl Est Cr Clr Drug Dosing ml/min Est GFR ( Amer) ml/min Est GFR (Non-Af Amer) ml/min BUN/Creatinine Ratio (10-20) Glucose (70-99) mg/dl Calcium (8.5-10.1) mg/dl Magnesium 1.9 (1.8-2.4) mg/dl Total Bilirubin (0.2-1) mg/dl AST (15-37) U/L ALT (12-78) Alkaline Phosphatase (45-117) U/L C-Reactive Protein (0-0.29) mg/dl Total Protein (6.4-8.2) gm/dl Albumin (3.4-5.0) gm/dl Globulin (2.5-4.0) gm/dl Albumin/Globulin Ratio (0.9-2) Procalcitonin 0.22 (0-0.5) ng/ml Imaging Data Attestation: I personally reviewed and interpreted this imaging study as follows: Radiologist's Impression: Chest X-Ray 04/01/21 08:31 XR chest 1V portable CLINICAL HISTORY: sob, covid+ TECHNIQUE: Single frontal radiograph of the chest was obtained. Comparison: Comparison is made to chest one view 03/30/2021 FINDINGS: No lines and tubes are seen. The cardiomediastinal silhouette is normal. Multifocal airspace opacities are seen, increased from prior exam. No evidence of pleural effusion or pneumothorax. Scoliosis is again noted. IMPRESSION: Multifocal airspace opacities are increased from the prior exam compatible with history of Covid pneumonia. ACT 112: Negative or not required by law. Electronically signed by: Óscar Willson M.D. 04/01/2021 8:49 AM MDM Narrative Continuous pvc monitor: Order was placed for continuous pvc monitor. Patient was placed on the pvc monitor. Patient was noted to be in normal sinus rhythm at an initial rate of 90 bpm. The patient is a 65-year-old female who presents today complaining of shortness of breath. Patient was diagnosed with COVID-19 recently. She has been monitoring her pulse ox at home and it was found to be low today at 84%. On arrival to the ED, she is 80% on room air and was placed on oxygen via nasal cannula and able to maintain in the 90s. D-dimer was elevated at 800, CRP elevated at 7.69. Labs otherwise fairly unremarkable. Chest x-ray and subsequent CTA were consistent with COVID-19 pneumonia. Given patient's hypoxia, she was given dexamethasone and case was discussed with the [facility] service, who agreed to evaluate the patient for further care. Impression & Plan Pneumonia due to COVID-19 virus, Acute respiratory failure with hypoxia Discharge Plan Visit Data Chief Complaint: Respiratory Problems Stated Complaint: COVID POS 03/27/21 LOW O2 ED Provider: Marifer Pérez ED Midlevel Provider: Nara Rice Discharge Problem: Pneumonia due to COVID-19 virus, Acute respiratory failure with hypoxia Discharge Instructions Interventions: ED Discharge Assessment Last Done: 04/01/21 10:25
--- NOTE | 2021-04-01 08:51 | XRay Report ---
XR chest 1V portable CLINICAL HISTORY: sob, covid+ TECHNIQUE: Single frontal radiograph of the chest was obtained. Comparison: Comparison is made to chest one view 03/30/2021 FINDINGS: No lines and tubes are seen. The cardiomediastinal silhouette is normal. Multifocal airspace opacitie s are seen, increased from prior exam. No evidence of pleural effusion or pneumothorax. Scoliosis is again noted. IMPRESSION: Multifocal airspace opacities are increased from the prior exam compatible with history of Covid pneu monia. ACT 112: Negative or not required by law. Electronically signed by: Óscar Willson M.D. 04/01/2021 8:49 AM
[2021-04-01 09:13] LABS: Basophils # (auto) 0.01 K/uL (0-0.2); Basophils % (auto) 0.1 %; Hematocrit (blood only) 38.6 % (37-47); Hemoglobin 13.1 g/dL (12.0-16.0); Immature Granulocytes # (auto) 0.03 K/uL (0.00-0.02); Immature Granulocytes % (auto) 0.3 %; Lymphocytes # (auto) 0.66 K/uL (1.2-3.4); Lymphocytes % (auto) 7.2 %; Mean Corpuscular Hemoglobin 29.4 pg (25-34); Mean Corpuscular Hgb Conc 33.9 g/dL (32-36); Mean Corpuscular Volume 86.7 fL (80-100); Mean Platelet Volume 9.6 fL (7.4-10.4); Monocytes # (auto) 0.23 K/uL (0.11-0.59); Monocytes % (auto) 2.5 %; Neutrophils # (auto) 8.24 K/uL (1.4-6.5); Neutrophils % (auto) 89.9 %; Platelet Count 250 K/uL (130-400); RDW Coefficient of Variation 13.8 % (11.5-14.5); RDW Standard Deviation 44.3 fL (36.4-46.3); Red Blood Count 4.45 M/uL (4.2-5.4); White Blood Count 9.17 K/uL (4.8-10.8)
[2021-04-01 09:37] LABS: D Dimer 800 ug/L FEU (0-500)
[2021-04-01 09:55] LABS: Albumin Globulin Ratio 0.6 (0.9-2); Albumin Level 2.6 gm/dl (3.4-5.0); Bilirubin,Total 0.4 mg/dl (0.2-1); C Reactive Protein 7.69 mg/dl (0-0.29); Calcium 8.6 mg/dl (8.5-10.1); Creatinine Clr Calc Pharmacy 73.7 ml/min; Est GFR (African American) 74.8 ml/min; Est GFR (Non-African American) 64.6 ml/min; Globulin 4.6 gm/dl (2.5-4.0); Potassium 3.2 mmol/L (3.5-5.1); Total Protein 7.2 gm/dl (6.4-8.2)
[2021-04-01] MEDS ORDERED: ALBUT/IPRATROP 3MG/0.5MG NEB 3 ML VIAL NEB PRN (10:00)
[2021-04-01] MEDS ORDERED: REMDESIVIR 200 MG in SODIUM CHLORIDE 0.9% 210 ML IV STA (10:00)
[2021-04-01] MEDS ORDERED: POTASSIUM CHLORIDE CRTAB 20 MEQ TABCR PO STA (10:02)
--- NOTE | 2021-04-01 10:35 | Electrocardiogram Report ---
Test Reason : Blood Pressure : / mmHG Vent. Rate : 093 BPM Atrial Rate : 093 BPM P-R Int : 176 ms QRS Dur : 078 ms QT Int : 346 ms P-R-T Axes : 037 -36 040 degrees QTc Int : 430 ms Normal sinus rhythm Left axis deviation Inferior infarct , age undetermined Abnormal ECG When compared with ECG of 31-MAR-2021 00:39, No significant change was found Confirmed by Benjamin Machado ([id number]) on 04/01/2021 10:34:56 AM Referred By: Confirmed By:Benjamin Machado
--- NOTE | 2021-04-01 11:09 | History & Physical Report ---
Date of Service April 01, 2021 Assessment & Plan (1) Acute respiratory failure with hypoxia: (2) Pneumonia due to COVID-19 virus: Plan: -Admit to [facility] with telemetry -Patient presenting from home with reports of low oxygen levels. Tested positive for COVID-19 on 03/25. Seen in the ED yesterday and given IV dexamethasone and discharged home with home pulse oximeter. -In the ED, hypoxic on room air at 80%, currently requiring 3 L of oxygen via nasal cannula -CXR shows multifocal pneumonia consistent with COVID-19 -S/p IV dexamethasone in the ED, continue with IV dexamethasone 6 mg daily -Start remdesivir -D-dimer 800 - check CTA -Wean O2 as able, incentive spirometer, prn nebs (3) Prediabetes: Plan: -Hgb A1c 6.2 10/2019 -Glucose 141 on today's labs, monitor BSG while receiving IV dexamethasone. Update A1c with morning labs. (4) GERD (gastroesophageal reflux disease): Plan: -Continue PPI (5) DVT prophylaxis: Plan: -SQ Lovenox Admission and Anticipated Discharge Date Admission Date: April 01, 2021 History of Present Illness Chief Complaint: Low oxygen level Primary Care Provider: Je Da Silva DO 65-year-old female with PMH prediabetes, and other problems listed below who presents to the ED for evaluation of low oxygen levels. Patient seen in the ED on 03/31 for evaluation of COVID-19. Patient tested positive as an outpatient on 03/25. In the ED, patient received a dose of IV dexamethasone and discharged home with a home pulse oximeter. Patient reports having readings in the high 80s at rest. She presented then back to the ED for additional evaluation. Patient reports a minimal dry, nonproductive cough. Has some shortness of breath with exertion. Denies chest pain. No lightheadedness, dizziness, diaphoresis, syncopal events. Reports a very poor appetite however no abdominal pain, nausea, vomiting, diarrhea. No urinary symptoms. In the ED, patient was hypoxic on room air at 80%, currently requiring 3 L of oxygen via nasal cannula. Labs show D-dimer 800, K+ 3.2. CXR shows multifocal pneumonia consistent with COVID-19. Allergies Allergy/AdvReac Type Severity Reaction Status Date / Time No Known Allergies Allergy Verified 03/31/21 00:53 Home Medications Medication Instructions Recorded Confirmed Type amoxicillin 500 mg capsule 1,000 mg PO TID 03/31/21 04/01/21 History pantoprazole 20 mg tablet,delayed 20 mg PO DAILY 03/31/21 04/01/21 History release Past Med/Surg History Medical History GERD (gastroesophageal reflux disease) Prediabetes Surgical History History of arthroscopic knee surgery History of cholecystectomy History of tubal ligation Family History Sister Breast cancer Social History Smoking Status: Never smoker Hx Alcohol Use: No Preferred Language: Norwegian Feels Safe at Home: Yes Review of Systems Review of Systems: ROS per HPI, all other systems reviewed and negative Physical Exam Physical Exam: please refer to Dr. Tyler's addendum for physical exam Results & Data Results & Data ([facility]) Vital Signs (Past 12 Hours) Vital Signs Temp Pulse Resp BP BP Pulse Ox 04/01/21 10:25 82 20 122/85 94 04/01/21 10:11 16 122/77 93 04/01/21 10:00 88 22 125/80 95 04/01/21 09:30 87 20 121/79 95 04/01/21 09:00 88 22 118/66 95 04/01/21 08:50 95 H 18 94 04/01/21 08:46 88 16 95 04/01/21 08:29 80 L 04/01/21 08:24 80 L 04/01/21 08:14 37.5 C 91 H 20 105/65 88 L Laboratory Results Short CBC 04/01/21 Range/Units 08:59 WBC 9.17 (4.8-10.8) K/uL Hgb 13.1 (12.0-16.0) g/dL Hct 38.6 (37-47) % Plt Count 250 (130-400) K/uL BMP 04/01/21 08:59 Sodium 137 Potassium 3.2 L Chloride 106 Carbon Dioxide 23 BUN 22 H Creatinine 0.94 D Glucose 141 H Calcium 8.6 Liver Function 04/01/21 Range/Units 08:59 Total Bilirubin 0.4 (0.2-1) mg/dl AST 27 (15-37) U/L ALT 17 (12-78) Alkaline Phosphatase 48 (45-117) U/L Albumin 2.6 L (3.4-5.0) gm/dl Diagnostic Findings Chest X-Ray 04/01/21 08:31 XR chest 1V portable CLINICAL HISTORY: sob, covid+ TECHNIQUE: Single frontal radiograph of the chest was obtained. Comparison: Comparison is made to chest one view 03/30/2021 FINDINGS: No lines and tubes are seen. The cardiomediastinal silhouette is normal. Multifocal airspace opacities are seen, increased from prior exam. No evidence of pleural effusion or pneumothorax. Scoliosis is again noted. IMPRESSION: Multifocal airspace opacities are increased from the prior exam compatible with history of Covid pneumonia. ACT 112: Negative or not required by law. Electronically signed by: Óscar Willson M.D. 04/01/2021 8:49 AM Code Status & VTE Plan Code Status Patient is a full code as per Dr. Medina's discussion with her. VTE Prophylaxis Plan VTE Prophylaxis will be ordered: Yes Supervising Physician Co-Signing Physician Notes Pt is a 65 y/o F with hx of HLD, prediabetes, first degree heart block, GERD admitted for COVID pneumonia. Exam: -NC in place (3L) -Lungs: good air entry b/l with b/l lower lobe rales -Cardiac: normal S1/S2, no murmur -Abd: soft, ND, NT -B/L LE: no edema -Psych: AAOx3, normal affect A/P: COVID pneumonia with hypoxia: -Tested positive for COVID on: 03/25 - symptoms onset on: 03/23 -Procal ordered: neg -LFTs are normal and CrCl:73 -will start the pt on Remdesivir and Dexamethasone -continue on oxygen supplement right now -encourage frequent change of position (including proning) -daily CMP and CRP -DVT ppx ordered -will replete low K+ -D-dimer is elevated with pt being hypoxic will get CTA chest Agree with LORIE Ellington A/P
[2021-04-01] MEDS ORDERED: OPTIRAY 320 125ml IV ONE (11:20)
--- NOTE | 2021-04-01 11:22 | CT Scan Report ---
CT angio chest PE protocol CLINICAL HISTORY: Cough and shortness of breath. Positive Covid. Evaluate for pulmonary embolus COMPARISON STUDY: Portable chest from 04/01/[address] chest without contrast from 09/27/2018 CT DOSE: 565.30 mGy.cm TECHNIQUE: CT Angio of the chest was performed.followed by image post processing with coronal, and s agittal MIP reformats. Contrast Volume: Optiray 320, 120 ml FINDINGS: Vasculature: There is homogeneous perfusion of the pulmonary vasculature bilaterally. No intraluminal filling defects or evidence for pulmonary embolus is seen. Airway: The airway is clear. No endobronchial lesion is identified. Lungs: Extensive groundglass opacities are present throughout both lungs characteristic of a viral ty pe pneumonitis and Covid 19 pneumonia. The lungs are otherwise clear of confluent alveolar opacities, air bronchograms or pulmonary nodules. Pleura: There is no evidence for pleural effusion. There is no evidence for pneumothorax. Mediastinum: There is no evidence for pathologic adenopathy. The heart size is within normal limits. The thoracic aorta is within normal limits. There is no evidence for pericardial effusion. Upper abdomen:The adrenal glands are normal bilaterally. Left lobe hepatic cyst is again seen. There is also again a small hiatal hernia. Osseous structures: There is no acute osseous pathology. Degenerative changes are seen within the sp ine. Impression: 1. No CTA evidence for pulmonary embolus. 2. Extensive groundglass opacities are present throughout both lungs characteristic of a viral type p neumonitis and Covid 19 pneumonia. 3. Additional nonacute findings are delineated above. ACT 112: Negative or not required by law. Electronically signed by: Matt Espinosa M.D. 04/01/2021 11:21 AM
[2021-04-01] MEDS: SODIUM CHLORIDE 0.9% 10ML FLUSH IV SCH (13:48)
[2021-04-01] MEDS ORDERED: ACETAMINOPHEN 325 MG TAB PO PRN (16:11)
[2021-04-01] MEDS: ENOXAPARIN INJ 40 MG/0.4 ML SYR SQ SCH (21:15)
[2021-04-02] MEDS ORDERED: dexAMETHasone 6 MG in SYRINGE 0 ML IV ONE (06:08)
[2021-04-02] MEDS ORDERED: ALBUT/IPRATROP 3MG/0.5MG NEB 3 ML VIAL NEB STA (06:08)
[2021-04-02 07:00] LABS: Hematocrit (blood only) 38.1 % (37-47); Hemoglobin 12.4 g/dL (12.0-16.0); Mean Corpuscular Hgb Conc 32.5 g/dL (32-36); Mean Platelet Volume 9.6 fL (7.4-10.4); Platelet Count 269 K/uL (130-400); RDW Coefficient of Variation 14.2 % (11.5-14.5); RDW Standard Deviation 46.2 fL (36.4-46.3); Red Blood Count 4.28 M/uL (4.2-5.4); White Blood Count 6.84 K/uL (4.8-10.8)
[2021-04-02 07:17] LABS: Base Excess ABG 0.9 mEq/L (-9-1.8); HCO3 ABG 25 mmol/L (19-24); Oxygen Saturation ABG 93.7 % (90-95); PCO2 ABG 36 mmHg (35-46); PO2 ABG 65 mmHg (80-95); pH ABG 7.45 (7.35-7.45)
[2021-04-02 07:20] LABS: Allen Test Pos (Pos)
[2021-04-02 07:39] LABS: BUN Creatinine Ratio 32.6 (10-20); Calcium 8.6 mg/dl (8.5-10.1); Est GFR (African American) 111.2 ml/min; Potassium 3.9 mmol/L (3.5-5.1)
[2021-04-02] MEDS: PANTOprazole 40 MG TAB PO SCH (08:17)
--- NOTE | 2021-04-02 08:25 | XRay Report ---
XR chest 1V portable CLINICAL HISTORY: low o2. Follow-up bilateral airspace opacities COMPARISON STUDY: 04/01/2021 TECHNIQUE: 1 view of the chest FINDINGS: Single frontal view of the chest demonstrates the cardiomediastinal silhouette to be within normal li mits. Compared to the previous examination, bilateral interstitial and alveolar airspace opacities ar e again seen and essentially unchanged. The findings are again characteristic of a viral type pneumon itis and Covid pneumonia. There is no evidence for pleural effusion. There is no evidence for vascula r congestion. There is no acute osseous pathology. IMPRESSION: No significant interval change in bilateral interstitial and alveolar opacities character istic of Covid pneumonia. ACT 112: Negative or not required by law. Electronically signed by: Matt Espinosa M.D. 04/02/2021 8:23 AM
[2021-04-02] MEDS ORDERED: dexAMETHasone 6 MG in SYRINGE 0 ML IV SCH (09:00)
[2021-04-02 10:44] LABS: Estimated Average Glucose 148 mg/dl; Hemoglobin A1C 6.8 % (4.5-5.6)
[2021-04-02] MEDS: SODIUM CHLORIDE 0.9% 10ML FLUSH IV SCH ×2 (11:39→19:52)
--- NOTE | 2021-04-02 19:17 | Hospitalist Progress Note ---
Date of Service April 02, 2021 Assessment & Plan (1) Acute respiratory failure with hypoxia: (2) Pneumonia due to COVID-19 virus: Plan: (1) Acute respiratory failure with hypoxia: (2) Pneumonia due to COVID-19 virus: Plan: -Admitted to [facility] with telemetry -Patient presenting from home with reports of low oxygen levels. Tested positive for COVID-19 on 03/25. Seen in the ED 1 day C [facility] and given IV dexamethasone and discharged home with home pulse oximeter. -Patient not vaccinated, reports signs and symptoms since 03/25. -In the ED, hypoxic on room air at 80%, currently requiring 3 L of oxygen via nasal cannula -CXR shows multifocal pneumonia consistent with COVID-19 -S/p IV dexamethasone in the ED, continue with IV dexamethasone 6 mg daily -c/w remdesivir 04/01 and dexa 04/01 -Admitting D-dimer 800 ---> CTA chest negative for PE -Wean O2 as able, incentive spirometer, prn nebs (3) Prediabetes: Plan: -Hgb A1c 6.2 10/2019 -Fairly under control, was daily blood glucose -[place] sliding scale if needed. (4) GERD (gastroesophageal reflux disease): Plan: -Continue PPI (5) DVT prophylaxis: Plan: -SQ Lovenox Admission and Anticipated Discharge Date Admission Date: April 01, 2021 Subjective Patient was lying in bed, on 10 L oxygen via oxygen mask, no new acute events overnight. Patient reports slightly decreased appetite but reports improving diarrhea. Patient denies fever/headache/chills/chest pain/increased shortness of breath/other review of symptoms. Physical Exam Physical Exam: GENERAL: Alert and oriented x3. NAD, on 10L via Oxymask. HEENT: No pallor, no icterus. Pupils equal, round and reactive to light. Oral mucosa moist. NECK: No JVD, no neck masses. HEART: S1 and S2 heard. Regular rate and rhythm. No murmur, no gallop. RESPIRATORY SYSTEM: Normal AP diameter. No accessory muscle use. No wheezing, bilateral crackles and decreased breath sounds. ABDOMEN: Soft, bowel sounds present, nontender, no distention. CENTRAL NERVOUS SYSTEM: No facial droop. Speech is clear. Obeys simple commands. Moves extremities. EXTREMITIES: No edema, no erythema seen. Results & Data Results & Data ([facility]) Vital Signs (Past 12 Hours) Vital Signs Temp Pulse Pulse Resp BP Pulse Ox 04/02/21 15:35 36.6 C 79 20 116/72 93 04/02/21 14:20 64 04/02/21 11:36 36.9 C 90 20 122/78 91 04/02/21 08:01 36.8 C 88 20 122/77 92 04/02/21 07:33 87 18 92
[2021-04-02] MEDS: REMDESIVIR 100 MG in SODIUM CHLORIDE 0.9% 230 ML IV SCH (19:52)
[2021-04-02] MEDS: ENOXAPARIN INJ 40 MG/0.4 ML SYR SQ SCH (19:57)
[2021-04-03 08:11] LABS: BUN Creatinine Ratio 38.3 (10-20); Calcium 8.7 mg/dl (8.5-10.1); Creatinine Clr Calc Pharmacy 113.6 ml/min; Est GFR (African American) 112.4 ml/min; Potassium 3.6 mmol/L (3.5-5.1)
[2021-04-03] MEDS: PANTOprazole 40 MG TAB PO SCH (08:44)
[2021-04-03] MEDS: dexAMETHasone 6 MG in SYRINGE 0 ML IV SCH (08:45)
[2021-04-03] MEDS ORDERED: POTASSIUM CHLORIDE CRTAB 20 MEQ TABCR PO STA (09:59)
--- NOTE | 2021-04-03 17:10 | Hospitalist Progress Note ---
Date of Service April 03, 2021 Assessment & Plan (1) Acute respiratory failure with hypoxia: (2) Pneumonia due to COVID-19 virus: Plan: (1) Acute respiratory failure with hypoxia: (2) Pneumonia due to COVID-19 virus: Plan: -Admitted to [facility] [place] with telemetry -Patient presenting from home with reports of low oxygen levels. Tested positive for COVID-19 on 03/25. 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 -Patient not vaccinated, reports signs and symptoms since 03/25. 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 (3) Prediabetes: Plan: -Hgb A1c 6.2 10/2019 -Fairly under control, was daily blood glucose -[place] sliding scale if needed. (4) GERD (gastroesophageal reflux disease): Plan: -Continue PPI (5) DVT prophylaxis: Plan: -SQ Lovenox Admission and Anticipated Discharge Date Admission Date: April 01, 2021 Subjective .Patient was lying in bed, on 12 L oxygen via oxygen mask, no new acute events overnight. Patient reports eating and moving bowels okay. Patient reports minimal cough. Patient reports feeling better. Patient denies fever/headache/chills/chest pain/increased shortness of breath/other review of symptoms. Physical Exam Physical Exam: GENERAL: Alert and oriented x3. NAD, on 12 L via Oxymask. HEENT: No pallor, no icterus. Pupils equal, round and reactive to light. Oral mucosa moist. NECK: No JVD, no neck masses. HEART: S1 and S2 heard. Regular rate and rhythm. No murmur, no gallop. RESPIRATORY SYSTEM: Normal AP diameter. No accessory muscle use. No wheezing, decreased breath sounds bilaterally, crackles improving. ABDOMEN: Soft, bowel sounds present, nontender, no distention. CENTRAL NERVOUS SYSTEM: No facial droop. Speech is clear. Obeys simple commands. Moves extremities. EXTREMITIES: No edema, no erythema seen. Results & Data Results & Data ([facility]) Vital Signs (Past 12 Hours) Vital Signs Temp Pulse Pulse Resp BP Pulse Ox 04/03/21 14:57 36.4 C L 85 20 130/82 91 04/03/21 14:30 72 04/03/21 11:23 36.5 C 73 20 121/69 98 04/03/21 08:23 36.4 C L 63 20 125/65 98 04/03/21 06:20 64
[2021-04-03] MEDS ORDERED: REMDESIVIR 100 MG in SODIUM CHLORIDE 0.9% 230 ML IV SCH (20:00)
[2021-04-03] MEDS: ENOXAPARIN INJ 40 MG/0.4 ML SYR SQ SCH (20:09)
[2021-04-03] MEDS: SODIUM CHLORIDE 0.9% 10ML FLUSH IV SCH (20:09)
[2021-04-03] MEDS: REMDESIVIR 100 MG in SODIUM CHLORIDE 0.9% 230 ML IV SCH (20:09)
[2021-04-04 07:44] LABS: BUN Creatinine Ratio 50.5 (10-20); Calcium 8.7 mg/dl (8.5-10.1); Creatinine Clr Calc Pharmacy 128.9 ml/min; Est GFR (African American) 117.1 ml/min; Magnesium 2.1 mg/dl (1.8-2.4); Potassium 3.8 mmol/L (3.5-5.1)
[2021-04-04] MEDS: dexAMETHasone 6 MG in SYRINGE 0 ML IV SCH (08:07)
[2021-04-04] MEDS: PANTOprazole 40 MG TAB PO SCH (08:07)
[2021-04-04] MEDS ORDERED: POTASSIUM CHLORIDE CRTAB 20 MEQ TABCR PO STA (15:35)
[2021-04-04] MEDS ORDERED: FUROSEMIDE INJ 20 MG/2 ML VIAL IV ONE (15:45)
--- NOTE | 2021-04-04 18:23 | Hospitalist Progress Note ---
Date of Service April 04, 2021 Assessment & Plan (1) Acute respiratory failure with hypoxia: (2) Pneumonia due to COVID-19 virus: Plan: (1) Acute respiratory failure with hypoxia: (2) Pneumonia due to COVID-19 virus: Plan: -Patient presenting from home with reports of low oxygen levels. Tested positive for COVID-19 on 03/25. 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 -Patient not vaccinated, reports signs and symptoms since 03/25. -In the ED, hypoxic on room air at 80%, currently requiring 3 L of oxygen via nasal cannula -CXR shows multifocal pneumonia consistent with COVID-19 -S/p IV dexamethasone in the ED, continue with IV dexamethasone 6 mg daily -c/w remdesivir 04/01 and dexa 04/01 -Admitting D-dimer 800 ---> CTA chest negative for PE -Wean O2 as able, incentive spirometer, prn nebs -Clinically better but is still requiring about 8 L of oxygen to maintain saturation -We will give 60 mg of Lasix IV today and continue current management (3) Prediabetes: Plan: -Hgb A1c 6.2 10/2019 -Fairly under control, was daily blood glucose -[place] sliding scale if needed. (4) GERD (gastroesophageal reflux disease): Plan: -Continue PPI (5) DVT prophylaxis: Plan: -SQ Lovenox Admission and Anticipated Discharge Date Admission Date: April 01, 2021 Subjective 04/04/2021 The patient was seen and examined in Covid unit She has been feeling better but still requiring 8 L of oxygen to maintain saturation Denies any cough, chest pain or palpitation. No nausea or vomiting Review of Systems Review of Systems: All systems reviewed and are unremarkable except as noted below Respiratory: Mild shortness of breath at rest with cough Physical Exam Physical Exam: Lying in bed comfortably Constitutional: well developed, well nourished and + obese Eyes: PERRL, conjunctivae normal, anicteric sclerae ENMT: external ear and nose normal, oropharynx normal Neck: trachea midline, no thyromegaly Respiratory: + respiratory distress (Minimal respiratory distress at rest) Auscultation: + diminished lung sounds and + crackles (Minimal crackles at the bases) Cardiovascular: Rate/Rhythm: regular rate and regular rhythm; not tachycardic Heart Sounds: normal S1 and normal S2; no murmur Extremities: + edema (Trace edema bilaterally) Gastrointestinal (Abdomen): Inspection/Auscultation: normal bowel sounds; abdomen not distended Percussion/Palpation: abdomen soft; abdomen nontender Musculoskeletal: No acute arthritis in any joint Neurologic: Alert, awake and oriented x3 Lymphatic: no cervical or axillary lymphadenopathy Results & Data Results & Data ([facility]) Vital Signs (Past 12 Hours) Vital Signs Temp Pulse Pulse Resp BP Pulse Ox 04/04/21 15:09 37.0 C 84 19 147/73 H 97 04/04/21 14:29 58 L 04/04/21 13:12 95 04/04/21 11:46 36.7 C 63 20 111/68 94 04/04/21 08:06 36.6 C 59 L 21 129/78 93 04/04/21 06:20 58 L Laboratory Results [facility] 04/04/21 05:23 Sodium 141 Potassium 3.8 Chloride 109 H Carbon Dioxide 26 BUN 27 H Creatinine 0.53 L Glucose 140 H Calcium 8.7 Liver Function 04/04/21 Range/Units 05:23 AST 26 (15-37) U/L ALT 16 (12-78) Medications Administered Current Inpatient Medications Acetaminophen (Acetaminophen 325 Mg Tab) 650 mg PO Q4H PRN PRN Reason: pain/fever Stop: 05/01/21 16:10 Albuterol (Albut/Ipratrop 3mg/0.5mg Neb 3 Ml Vial) 3 ml NEB Q4R PRN PRN Reason: shortness of breath Stop: 05/01/21 10:59 Enoxaparin Sodium (Enoxaparin Inj 40 Mg/0.4 Ml Syr) 40 mg SQ Q24H ORLIN Stop: 05/01/21 20:59 Last Admin: 04/03/21 20:09 Dose: 40 mg Documented by: Dexamethasone 6 mg/ Syringe 1.5 mls @ 1 mls/min IV DAILY ORLIN Stop: 04/13/21 08:59 Last Admin: 04/04/21 08:07 Dose: 1 mls/min Documented by: Remdesivir 100 mg/ Sodium (Chloride) 250 mls @ 250 mls/hr IV Q24H ORLIN; Protocol Stop: 04/05/21 20:59 Last Infusion: 04/03/21 21:23 Dose: Infused Documented by: Pantoprazole Sodium (Pantoprazole 40 Mg Tab) 40 mg PO DAILY ORLIN Stop: 05/02/21 08:59 Last Admin: 04/04/21 08:07 Dose: 40 mg Documented by: Sodium Chloride (Sodium Chloride 0.9% 10ml Flush) 30 ml IV Q24H ORLIN Stop: 04/05/21 20:01 Last Admin: 04/03/21 20:09 Dose: 30 ml Documented by:
[2021-04-04] MEDS: REMDESIVIR 100 MG in SODIUM CHLORIDE 0.9% 230 ML IV SCH (20:13)
[2021-04-04] MEDS: ENOXAPARIN INJ 40 MG/0.4 ML SYR SQ SCH (20:18)
[2021-04-04] MEDS: SODIUM CHLORIDE 0.9% 10ML FLUSH IV SCH (21:23)
[2021-04-05 07:32] LABS: BUN Creatinine Ratio 43.4 (10-20); Creatinine Clr Calc Pharmacy 115.4 ml/min; Est GFR (African American) 113.1 ml/min; Est GFR (Non-African American) 97.5 ml/min; Potassium 3.9 mmol/L (3.5-5.1)
[2021-04-05 07:35] LABS: C Reactive Protein 1.12 mg/dl (0-0.29)
[2021-04-05] MEDS: dexAMETHasone 6 MG in SYRINGE 0 ML IV SCH (08:05)
[2021-04-05] MEDS: PANTOprazole 40 MG TAB PO SCH (09:23)
[2021-04-05] MEDS ORDERED: guaiFENesin/DEXTROM SYRUP 200MG/20MG 10ML UDC PO PRN (16:14)
--- NOTE | 2021-04-05 16:16 | Hospitalist Progress Note ---
Date of Service April 05, 2021 Assessment & Plan (1) Acute respiratory failure with hypoxia: (2) Pneumonia due to COVID-19 virus: Plan: (1) Acute respiratory failure with hypoxia: (2) Pneumonia due to COVID-19 virus: Plan: -Patient presenting from home with reports of low oxygen levels. Tested positive for COVID-19 on 03/25. 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 -Patient not vaccinated, reports signs and symptoms since 03/25. -In the ED, hypoxic on room air at 80%, currently requiring 3 L of oxygen via nasal cannula -CXR shows multifocal pneumonia consistent with COVID-19 -S/p IV dexamethasone in the ED, continue with IV dexamethasone 6 mg daily -c/w remdesivir 04/01 and dexa 04/01 -Admitting D-dimer 800 ---> CTA chest negative for PE -Wean O2 as able, incentive spirometer, prn nebs -Clinically better but is still requiring about 8 L of oxygen to maintain saturation -We will give 60 mg of Lasix IV today and continue current management -Clinically much better and is requiring about 3 L to maintain saturation -Will provide cough medicine and likely discharge in a day or 2 (3) Prediabetes: Plan: -Hgb A1c 6.2 10/2019 -Fairly under control, was daily blood glucose -[place] sliding scale if needed. (4) GERD (gastroesophageal reflux disease): Plan: -Continue PPI (5) DVT prophylaxis: Plan: -SQ Lovenox Admission and Anticipated Discharge Date Admission Date: April 01, 2021 Subjective 04/04/2021 The patient was seen and examined in Covid unit She has been feeling better but still requiring 8 L of oxygen to maintain satu ration Denies any cough, chest pain or palpitation. No nausea or vomiting 04/05/2021 The patient was seen and examined in Covid unit She has been feeling much better and her oxygen requirements has come down to 3 L today Still has cough but no other symptoms Review of Systems Review of Systems: All systems reviewed and are unremarkable except as noted below Respiratory: Mild shortness of breath at rest with cough Physical Exam Physical Exam: Lying in bed comfortably Constitutional: well developed, well nourished and + obese Eyes: PERRL, conjunctivae normal, anicteric sclerae ENMT: external ear and nose normal, oropharynx normal Neck: trachea midline, no thyromegaly Respiratory: + respiratory distress (Minimal respiratory distress at rest) Auscultation: + diminished lung sounds and + crackles (Minimal crackles at the bases) Cardiovascular: Rate/Rhythm: regular rate and regular rhythm; not tachycardic Heart Sounds: normal S1 and normal S2; no murmur Extremities: + edema (Trace edema bilaterally) Gastrointestinal (Abdomen): Inspection/Auscultation: normal bowel sounds; abdomen not distended Percussion/Palpation: abdomen soft; abdomen nontender Musculoskeletal: No acute arthritis in any joint Neurologic: Alert, awake and oriented x3 Lymphatic: no cervical or axillary lymphadenopathy Results & Data Results & Data ([facility]) Vital Signs (Past 12 Hours) Vital Signs Temp Pulse Pulse Resp BP Pulse Ox 04/05/21 16:09 36.7 C 75 19 134/89 96 04/05/21 15:45 18 95 04/05/21 15:27 77 04/05/21 12:48 18 93 04/05/21 11:38 36.9 C 71 19 113/74 95 04/05/21 09:07 5 L 96 04/05/21 07:50 67 04/05/21 06:38 36.6 C 68 18 115/69 95 Laboratory Results [facility] 04/05/21 05:29 Sodium 137 Potassium 3.9 Chloride 104 Carbon Dioxide 27 BUN 26 H Creatinine 0.59 L Glucose 131 H Calcium 9.0 Liver Function 04/05/21 Range/Units 05:29 AST 29 (15-37) U/L ALT 20 (12-78) Medications Administered Current Inpatient Medications Acetaminophen (Acetaminophen 325 Mg Tab) 650 mg PO Q4H PRN PRN Reason: pain/fever Stop: 05/01/21 16:10 Albuterol (Albut/Ipratrop 3mg/0.5mg Neb 3 Ml Vial) 3 ml NEB Q4R PRN PRN Reason: shortness of breath Stop: 05/01/21 10:59 Enoxaparin Sodium (Enoxaparin Inj 40 Mg/0.4 Ml Syr) 40 mg SQ Q24H ORLIN Stop: 05/01/21 20:59 Last Admin: 04/04/21 20:18 Dose: 40 mg Documented by: Guaifenesin/Dextromethorphan (Guaifenesin/Dextrom Syrup 200mg/20mg 10ml Udc) 10 ml PO Q6H PRN PRN Reason: Cough Stop: 05/05/21 16:13 Dexamethasone 6 mg/ Syringe 1.5 mls @ 1 mls/min IV DAILY ORLIN Stop: 04/13/21 08:59 Last Admin: 04/05/21 08:05 Dose: 1 mls/min Documented by: Remdesivir 100 mg/ Sodium (Chloride) 250 mls @ 250 mls/hr IV Q24H ORLIN; Protocol Stop: 04/05/21 20:59 Last Infusion: 04/04/21 21:37 Dose: Infused Documented by: Pantoprazole Sodium (Pantoprazole 40 Mg Tab) 40 mg PO DAILY ORLIN Stop: 05/02/21 08:59 Last Admin: 04/05/21 09:23 Dose: 40 mg Documented by: Sodium Chloride (Sodium Chloride 0.9% 10ml Flush) 30 ml IV Q24H ORLIN Stop: 04/05/21 20:01 Last Admin: 04/04/21 21:23 Dose: 30 ml Documented by:
[2021-04-05] MEDS: REMDESIVIR 100 MG in SODIUM CHLORIDE 0.9% 230 ML IV SCH (20:32)
[2021-04-05] MEDS: ENOXAPARIN INJ 40 MG/0.4 ML SYR SQ SCH (20:33)
[2021-04-05] MEDS: SODIUM CHLORIDE 0.9% 10ML FLUSH IV SCH (22:00)
[2021-04-06 07:06] LABS: Creatinine Clr Calc Pharmacy 116.5 ml/min; Est GFR (African American) 113.1 ml/min; Est GFR (Non-African American) 97.5 ml/min
[2021-04-06] MEDS: PANTOprazole 40 MG TAB PO SCH (08:22)
[2021-04-06] MEDS: dexAMETHasone 6 MG in SYRINGE 0 ML IV SCH (08:22)
[2021-04-06] MEDS ORDERED: POTASSIUM CHLORIDE CRTAB 20 MEQ TABCR PO STA (10:38)
[2021-04-06] MEDS ORDERED: FUROSEMIDE 40 MG/4 ML VIAL IV ONE (10:38)
--- NOTE | 2021-04-06 13:31 | Hospitalist Progress Note ---
Date of Service April 06, 2021 Assessment & Plan (1) Acute respiratory failure with hypoxia: (2) Pneumonia due to COVID-19 virus: Plan: (1) Acute respiratory failure with hypoxia: (2) Pneumonia due to COVID-19 virus: Plan: -Patient presenting from home with reports of low oxygen levels. Tested positive for COVID-19 on 03/25. 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 -Patient not vaccinated, reports signs and symptoms since 03/25. -In the ED, hypoxic on room air at 80%, currently requiring 3 L of oxygen via nasal cannula -CXR shows multifocal pneumonia consistent with COVID-19 -S/p IV dexamethasone in the ED, continue with IV dexamethasone 6 mg daily -c/w remdesivir 04/01 and dexa 04/01 -Admitting D-dimer 800 ---> CTA chest negative for PE -Wean O2 as able, incentive spirometer, prn nebs -Clinically better but is still requiring about 8 L of oxygen to maintain saturation -We will give 60 mg of Lasix IV today and continue current management -Clinically much better and is requiring about 3 L to maintain saturation -Will provide cough medicine and likely discharge in a day or 2 -Clinically much better and has been requiring about 3 L of oxygen to maintain saturation -We'll give another dose of Lasix with potassium supplement today and likely discharge tomorrow -We'll have 2 step O2 saturation test before discharge (3) Prediabetes: Plan: -Hgb A1c 6.2 10/2019 -Fairly under control, was daily blood glucose -[place] sliding scale if needed. (4) GERD (gastroesophageal reflux disease): Plan: -Continue PPI (5) DVT prophylaxis: Plan: -SQ Lovenox Admission and Anticipated Discharge Date Admission Date: April 01, 2021 Subjective 04/04/2021 The patient was seen and examined in Covid unit She has been feeling better but still requiring 8 L of oxygen to maintain saturation Denies any cough, chest pain or palpitation. No nausea or vomiting 04/05/2021 The patient was seen and examined in Covid unit She has been feeling much better and her oxygen requirements has come down to 3 L today Still has cough but no other symptoms 04/06/21 The patient was seen and examined in Covid unit She has been feeling much better and denies any more cough and/or shortness of breath at rest Review of Systems Review of Systems: All systems reviewed and are unremarkable except as noted below Respiratory: Mild shortness of breath at rest with cough Physical Exam Physical Exam: Lying in bed comfortably Constitutional: well developed, well nourished and + obese Eyes: PERRL, conjunctivae normal, anicteric sclerae ENMT: external ear and nose normal, oropharynx normal Neck: trachea midline, no thyromegaly Respiratory: + respiratory distress (Minimal respiratory distress at rest) Auscultation: + diminished lung sounds and + crackles (Minimal crackles at the bases) Cardiovascular: Rate/Rhythm: regular rate and regular rhythm; not tachycardic Heart Sounds: normal S1 and normal S2; no murmur Extremities: + edema (Trace edema bilaterally) Gastrointestinal (Abdomen): Inspection/Auscultation: normal bowel sounds; abdomen not distended Percussion/Palpation: abdomen soft; abdomen nontender Musculoskeletal: No acute arthritis in any joint Neurologic: patellar DTR's 2+ bilat, sensation intact Lymphatic: no cervical or axillary lymphadenopathy Results & Data Results & Data ([facility]) Vital Signs (Past 12 Hours) Vital Signs Temp Pulse Pulse Resp BP Pulse Ox 04/06/21 11:52 36.6 C 76 16 118/75 92 04/06/21 07:16 36.6 C 57 L 18 124/79 93 04/06/21 07:15 57 L 04/06/21 03:37 36.8 C 52 L 18 137/75 94 Laboratory Results [facility] 04/06/21 06:25 Creatinine 0.59 L Liver Function 04/06/21 Range/Units 06:25 AST 25 (15-37) U/L ALT 24 (12-78) Medications Administered Current Inpatient Medications Acetaminophen (Acetaminophen 325 Mg Tab) 650 mg PO Q4H PRN PRN Reason: pain/fever Stop: 05/01/21 16:10 Albuterol (Albut/Ipratrop 3mg/0.5mg Neb 3 Ml Vial) 3 ml NEB Q4R PRN PRN Reason: shortness of breath Stop: 05/01/21 10:59 Enoxaparin Sodium (Enoxaparin Inj 40 Mg/0.4 Ml Syr) 40 mg SQ Q24H ORLIN Stop: 05/01/21 20:59 Last Admin: 04/05/21 20:33 Dose: 40 mg Documented by: Guaifenesin/Dextromethorphan (Guaifenesin/Dextrom Syrup 200mg/20mg 10ml Udc) 10 ml PO Q6H PRN PRN Reason: Cough Stop: 05/05/21 16:13 Dexamethasone 6 mg/ Syringe 1.5 mls @ 1 mls/min IV DAILY ORLIN Stop: 04/13/21 08:59 Last Admin: 04/06/21 08:22 Dose: 1 mls/min Documented by: Pantoprazole Sodium (Pantoprazole 40 Mg Tab) 40 mg PO DAILY ORLIN Stop: 05/02/21 08:59 Last Admin: 04/06/21 08:22 Dose: 40 mg Documented by:
[2021-04-06] MEDS: ENOXAPARIN INJ 40 MG/0.4 ML SYR SQ SCH (20:58)
[2021-04-07 08:06] LABS: BUN Creatinine Ratio 37.9 (10-20); Calcium 8.6 mg/dl (8.5-10.1); Creatinine Clr Calc Pharmacy 122.8 ml/min; Est GFR (Non-African American) 99.2 ml/min; Magnesium 1.9 mg/dl (1.8-2.4)
[2021-04-07 08:17] LABS: Potassium 3.7 mmol/L (3.5-5.1)
[2021-04-07] MEDS: dexAMETHasone 6 MG in SYRINGE 0 ML IV SCH (08:31)
[2021-04-07] MEDS: PANTOprazole 40 MG TAB PO SCH (08:31)
--- NOTE | 2021-04-07 13:14 | Hospitalist Progress Note ---
Date of Service April 07, 2021 Assessment & Plan (1) Acute respiratory failure with hypoxia: (2) Pneumonia due to COVID-19 virus: Plan: (1) Acute respiratory failure with hypoxia: (2) Pneumonia due to COVID-19 virus: Plan: -Patient presenting from home with reports of low oxygen levels. Tested positive for COVID-19 on 03/25. 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 -Patient not vaccinated, reports signs and symptoms since 03/25. -In the ED, hypoxic on room air at 80%, currently requiring 3 L of oxygen via nasal cannula -CXR shows multifocal pneumonia consistent with COVID-19 -S/p IV dexamethasone in the ED, continue with IV dexamethasone 6 mg daily -c/w remdesivir 04/01 and dexa 04/01 -Admitting D-dimer 800 ---> CTA chest negative for PE -Wean O2 as able, incentive spirometer, prn nebs -Clinically better but is still requiring about 8 L of oxygen to maintain saturation -We will give 60 mg of Lasix IV today and continue current management -Clinically much better and is requiring about 3 L to maintain saturation -Will provide cough medicine and likely discharge in a day or 2 -Clinically much better and has been requiring about 3 L of oxygen to maintain saturation -We'll give another dose of Lasix with potassium supplement today and likely discharge tomorrow -Has been feeling much better and denies any shortness of breath at rest -Denies any cough or any other symptoms -Has had 2 step O2 saturation test and she will require 2 L with ambulation -Will be discharged home this afternoon (3) Prediabetes: Plan: -Hgb A1c 6.2 10/2019 -Fairly under control, was daily blood glucose -[place] sliding scale if needed. (4) GERD (gastroesophageal reflux disease): Plan: -Continue PPI (5) DVT prophylaxis: Plan: -SQ Lovenox Admission and Anticipated Discharge Date Admission Date: April 01, 2021 Subjective 04/04/2021 The patient was seen and examined in Covid unit She has been feeling better but still requiring 8 L of oxygen to maintain saturation Denies any cough, chest pain or palpitation. No nausea or vomiting 04/05/2021 The patient was seen and examined in Covid unit She has been feeling much better and her oxygen requirements has come down to 3 L today Still has cough but no other symptoms 04/06/21 The patient was seen and examined in Covid unit She has been feeling much better and denies any more cough and/or shortness of breath at rest 04/07/2021 The patient was seen and examined in Covid unit She has been feeling much better and does not require any oxygen to maintain saturation at rest She has had 2 step O2 saturation test and she will need 2 L with ambulation Review of Systems Review of Systems: All systems reviewed and are unremarkable except as noted below Respiratory: Mild shortness of breath at rest with cough Physical Exam Physical Exam: Lying in bed comfortably Constitutional: well developed, well nourished and + obese Eyes: PERRL, conjunctivae normal, anicteric sclerae ENMT: external ear and nose normal, oropharynx normal Neck: trachea midline, no thyromegaly Respiratory: + respiratory distress (Minimal respiratory distress at rest) Auscultation: + diminished lung sounds and + crackles (Minimal crackles at the bases) Cardiovascular: Rate/Rhythm: regular rate and regular rhythm; not tachycardic Heart Sounds: normal S1 and normal S2; no murmur Extremities: + edema (Trace edema bilaterally) Gastrointestinal (Abdomen): Inspection/Auscultation: normal bowel sounds; abdomen not distended Percussion/Palpation: abdomen soft; abdomen nontender Neurologic: patellar DTR's 2+ bilat, sensation intact Psychiatric: A+Ox3, euthymic affect Lymphatic: no cervical or axillary lymphadenopathy Results & Data Results & Data ([facility]) Vital Signs (Past 12 Hours) Vital Signs Temp Pulse Pulse Pulse Pulse Pulse Pulse 04/07/21 11:18 04/07/21 11:14 36.6 C 80 86 84 80 79 04/07/21 07:42 36.7 C 66 04/07/21 06:24 69 04/07/21 02:44 36.8 C 69 Resp Resp Resp Resp Resp BP Pulse Ox 04/07/21 11:18 91 04/07/21 11:14 20 20 21 20 19 117/76 88 L 04/07/21 07:42 16 115/73 91 04/07/21 06:24 04/07/21 02:44 18 112/64 92 Pulse Ox Pulse Ox Pulse Ox Pulse Ox 04/07/21 11:18 04/07/21 11:14 94 86 L 91 91 04/07/21 07:42 04/07/21 06:24 04/07/21 02:44 Laboratory Results [facility] 04/07/21 07:01 Sodium 136 Potassium 3.7 Chloride 102 Carbon Dioxide 27 BUN 21 H Creatinine 0.56 L Glucose 134 H Calcium 8.6 Medications Administered Current Inpatient Medications Acetaminophen (Acetaminophen 325 Mg Tab) 650 mg PO Q4H PRN PRN Reason: pain/fever Stop: 05/01/21 16:10 Albuterol (Albut/Ipratrop 3mg/0.5mg Neb 3 Ml Vial) 3 ml NEB Q4R PRN PRN Reason: shortness of breath Stop: 05/01/21 10:59 Enoxaparin Sodium (Enoxaparin Inj 40 Mg/0.4 Ml Syr) 40 mg SQ Q24H ORLIN Stop: 05/01/21 20:59 Last Admin: 04/06/21 20:58 Dose: 40 mg Documented by: Guaifenesin/Dextromethorphan (Guaifenesin/Dextrom Syrup 200mg/20mg 10ml Udc) 10 ml PO Q6H PRN PRN Reason: Cough Stop: 05/05/21 16:13 Dexamethasone 6 mg/ Syringe 1.5 mls @ 1 mls/min IV DAILY ORLIN Stop: 04/13/21 08:59 Last Admin: 04/07/21 08:31 Dose: 1 mls/min Documented by: Pantoprazole Sodium (Pantoprazole 40 Mg Tab) 40 mg PO DAILY ORLIN Stop: 05/02/21 08:59 Last Admin: 04/07/21 08:31 Dose: 40 mg Documented by:
--- NOTE | 2021-04-08 07:50 | Discharge Summary ---
Date of Service April 08, 2021 Admission HPI Per Admitting Provider 65-year-old female with PMH prediabetes, and other problems listed below who presents to the ED for evaluation of low oxygen levels. Patient seen in the ED on 03/31 for evaluation of COVID-19. Patient tested positive as an outpatient on 03/25. In the ED, patient received a dose of IV dexamethasone and discharged home with a home pulse oximeter. Patient reports having readings in the high 80s at rest. She presented then back to the ED for additional evaluation. Patient reports a minimal dry, nonproductive cough. Has some shortness of breath with exertion. Denies chest pain. No lightheadedness, dizziness, diaphoresis, syncopal events. Reports a very poor appetite however no abdominal pain, nausea, vomiting, diarrhea. No urinary symptoms. In the ED, patient was hypoxic on room air at 80%, currently requiring 3 L of oxygen via nasal cannula. Labs show D-dimer 800, K+ 3.2. CXR shows multifocal pneumonia consistent with COVID-19. Admission Exam Per Admitting Provider -NC in place (3L) -Lungs: good air entry b/l with b/l lower lobe rales -Cardiac: normal S1/S2, no murmur -Abd: soft, ND, NT -B/L LE: no edema -Psych: AAOx3, normal affect Principal Diagnosis Acute respiratory failure with hypoxia, COVID-19 pneumonia Discharge Exam Lying in bed comfortably Constitutional well developed, well nourished and + obese Eyes PERRL, conjunctivae normal, anicteric sclerae ENMT external ear and nose normal, oropharynx normal Neck trachea midline, no thyromegaly Respiratory + respiratory distress (Minimal respiratory distress at rest) Auscultation: + diminished lung sounds and + crackles (Minimal crackles at the bases) Cardiovascular Rate/Rhythm: regular rate and regular rhythm; not tachycardic Heart Sounds: normal S1 and normal S2; no murmur Extremities: + edema (Trace edema bilaterally) Gastrointestinal (Abdomen) Inspection/Auscultation: normal bowel sounds; abdomen not distended Percussion/Palpation: abdomen soft; abdomen nontender Neurologic patellar DTR's 2+ bilat, sensation intact Psychiatric A+Ox3, euthymic affect Lymphatic no cervical or axillary lymphadenopathy Discharge Data Allergies Allergy/AdvReac Type Severity Reaction Status Date / Time No Known Allergies Allergy Verified 04/01/21 11:20 Consultations 04/01/21 12:45 ED Decision to Admit Stat Ordered Studies 04/01/21 10:43 CT angio chest PE protocol Stat Diabetes Follow up Diabetes Follow-up Needed for Newly Diagnosed Diabetes Hospital Course (1) Acute respiratory failure with hypoxia: (2) Pneumonia due to COVID-19 virus: (1) Acute respiratory failure with hypoxia: (2) Pneumonia due to COVID-19 virus: Plan: -Patient presenting from home with reports of low oxygen levels. Tested positive for COVID-19 on 03/25. Seen in the ED 1 day [employer] and given IV dex amethasone and discharged home with home pulse oximeter. -Patient not vaccinated, reports signs and symptoms since 03/25. -In the ED, hypoxic on room air at 80%, currently requiring 3 L of oxygen via nasal cannula -CXR shows multifocal pneumonia consistent with COVID-19 -S/p IV dexamethasone in the ED, continue with IV dexamethasone 6 mg daily -c/w remdesivir 04/01 and dexa 04/01 -Admitting D-dimer 800 ---> CTA chest negative for PE -Wean O2 as able, incentive spirometer, prn nebs -Clinically better but is still requiring about 8 L of oxygen to maintain saturation -We will give 60 mg of Lasix IV today and continue current management -Clinically much better and is requiring about 3 L to maintain saturation -Will provide cough medicine and likely discharge in a day or 2 -Clinically much better and has been requiring about 3 L of oxygen to maintain saturation -We'll give another dose of Lasix with potassium supplement today and likely discharge tomorrow -Has been feeling much better and denies any shortness of breath at rest -Denies any cough or any other symptoms -Has had 2 step O2 saturation test and she will require 2 L with ambulation -Will be discharged home this afternoon (3) Prediabetes: Plan: -Hgb A1c 6.2 10/2019 -Fairly under control, was daily blood glucose -[place] sliding scale if needed. (4) GERD (gastroesophageal reflux disease): Plan: -Continue PPI (5) DVT prophylaxis: Plan: -SQ Lovenox Total Time Total Time Spent Total Time Spent (In Minutes): 40 minutes Discharge Plan Discharge Items Patient Disposition: Home - Self-Care Reason For Visit: COVID Discharge Diagnosis: Acute respiratory failure with hypoxia, COVID-19 pneumonia Condition on Discharge: Fair Activity: Resume your previous activity Non-emergency contact: Primary Care Provider Call non-emergency contact if: you have any medication questions and your symptoms worsen Follow-up/Referrals: Je Da Silva DO [Primary Care Provider] - (Date & Time 04/11/2021 10:40 AM Provider Je Da Silva DO Department [facility] ) Diet: Heart Healthy Addtl Attending Provider Instructions: Please take precautions to avoid fall Please take your oxygen as advised and with ambulation You can take [id number] cough medicine for any ongoing cough Try to maintain isolation precaution for next 4 days as advised below: Home Isolation COVID-19 Instructions The following information about Home Isolation is from the CDC Website: https://www.cdc.gov/coronavirus/2019-ncov/hcp/aexxbduz-ccpseji-ffkhnf.html Stay home except to get medical care People who are mildly ill with COVID-19 are able to isolate at home during their illness. You should restrict activities outside your home, except for getting medical care. Do not go to work, school, or public areas. Avoid using public transportation, ride-sharing, or taxis. Separate yourself from other people and animals in your home People: As much as possible, you should stay in a specific room and away from other people in your home. Also, you should use a separate bathroom, if available. Animals: You should restrict contact with pets and other animals while you are sick with COVID-19, just like you would around other people. Although there have not been reports of pets or other animals becoming sick with COVID-19, it is still recommended that people sick with COVID-19 limit contact with animals until more information is known about the virus. When possible, have another member of your household care for your animals while you are sick. If you are sick with COVID-19, avoid contact with your pet, including petting, snuggling, being kissed or licked, and sharing food. If you must care for your pet or be around animals while you are sick, wash your hands before and after you interact with pets and wear a face mask. Call ahead before visiting your doctor If you have a medical appointment, call the healthcare provider and tell them that you have or may have COVID-19. This will help the healthcare providers office take steps to keep other people from getting infected or exposed. Wear a face mask You should wear a face mask when you are around other people (e.g., sharing a room or vehicle) or pets and before you enter a healthcare providers office. If you are not able to wear a face mask (for example, because it causes trouble breathing), then people who live with you should not stay in the same room with you, or they should wear a face mask if they enter your room. Cover your coughs and sneezes Cover your mouth and nose with a tissue when you cough or sneeze. Throw used tissues in a lined trash can. Immediately wash your hands with soap and water for at least 20 seconds or, if soap and water are not available, clean your hands with an alcohol-based hand sports development officer that contains at least 60% alcohol. Clean your hands often Wash your hands often with soap and water for at least 20 seconds, especially after blowing your nose, coughing, or sneezing; going to the bathroom; and before eating or preparing food. If soap and water are not readily available, use an alcohol-based hand sports development officer with at least 60% alcohol, covering all surfaces of your hands and rubbing them together until they feel dry. Soap and water are the best option if hands are visibly dirty. Avoid touching your eyes, nose, and mouth with unwashed hands. Avoid sharing personal household items You should not share dishes, drinking glasses, cups, eating utensils, towels, or bedding with other people or pets in your home. After using these items, they should be washed thoroughly with soap and water. Clean all high-touch surfaces everyday High touch surfaces include counters, tabletops, doorknobs, bathroom fixtures, toilets, phones, keyboards, tablets, and bedside tables. Also, clean any surfaces that may have blood, stool, or body fluids on them. Use a household cleaning spray or wipe, according to the label instructions. Labels contain instructions for safe and effective use of the cleaning product including precautions you should take when applying the product, such as wearing gloves and making sure you have good ventilation during use of the product. Monitor your symptoms Seek prompt medical attention if your illness is worsening (e.g., difficulty breathing).Beforeseeking care, call your healthcare provider and tell them that you have, or are being evaluated for, COVID-19. Put on a face mask before you enter the facility. These steps will help the healthcare providers office to keep other people in the office or waiting room from getting infected or exposed. Ask your healthcare provider to call the local or state health department. Persons who are placed under active monitoring or facilitated self- monitoring should follow instructions provided by their local health department or occupational health professionals, as appropriate. When working with your local health department check their available hours. If you have a medical emergency and need to call 911, notify the dispatch personnel that you have, or are being evaluated for COVID-19. If possible, put on a face mask before emergency medical services arrive. Discontinuing home isolation Patients with confirmed COVID-19 should remain under home isolation precautions until the risk of secondary transmission to others is thought to be low. The decision to discontinue home isolation precautions should be made on a [id number] basis, in consultation with healthcare providers and [facility] and [facility] health departments. Pending Studies at Discharge: No Stand-Alone Forms: [facility], Smoking Cessation Medications and DC Order Prescriptions: New dexamethasone 6 mg tablet 6 mg PO DAILY Qty: 4 RF: 0 Continued [place] Gummies 2 ea PO DAILY RF: 0 pantoprazole 20 mg tablet,delayed release (DR/EC) 20 mg PO DAILY RF: 0 Discontinued amoxicillin 500 mg capsule 1,000 mg PO TID RF: 0 Discharge Orders: Discharge Order (Routine); Ordered 04/07/21 Ordered By: Addison Carter/Other Patient Handouts: High Blood Sugar (Hyperglycemia), Hypoglycemia (Low Blood Sugar), Diabetes: Meal Planning, Type 2 Diabetes Admission Data Admit Date/Time: 04/01/21 09:26 Attending Provider: Addison Kumari Admit Provider: Anabelle Medina Primary Care Provider: Je Da Silva Other Providers: Anabelle Medina ; Any Beck Other Interventions: Discharge Summary Assessment (RN) Last Done: 04/07/21 13:57
== END 2021-04-07 15:17 | disposition home or self-care (01) | DRG 177 ==
LOC: ED 08:11 → EDINP 09:26 → SUATTDRO 09:26 → 2W 10:25
DX: R73.03 Prediabetes; J12.82 Pneumonia due to coronavirus disease 2019; J96.01 Acute respiratory failure with hypoxia; U07.1 COVID-19; K21.9 Gastro-esophageal reflux disease without esophagitis